=== PATIENT | female | born 1975 | race Caucasian/White ===

== ENCOUNTER 2018-08-29 06:57 | Emergency (ER) | payer MEDICAID ==
[~2018-08-29] VITALS: Ht 152.4 cm; Wt 65.8 kg
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
[2018-08-29] MEDS: LIDOCAINE 1%-EPI 1:100,000 50 ML VIAL IJ ONE (07:38)
--- NOTE | 2018-08-29 07:54 | NUR ---
AT BEDSIDE FOR WOUND SUTURE
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
--- NOTE | 2018-08-29 08:15 | NUR ---
[facility] AT BS.
--- NOTE | 2018-08-29 08:51 | NUR ---
Patient discharged to home in stable condition. Written and verbal after care instructions given. Patient verbalizes understanding of instruction.
[2018-08-29 08:53] VITALS: BP 130/88
== END 2018-08-29 08:54 | disposition home or self-care (01) ==
LOC: ER 07:02
DX: S41.011A Laceration without foreign body of right shoulder, initial encounter (principal); F43.10 Post-traumatic stress disorder, unspecified; F41.9 Anxiety disorder, unspecified; Z98.890 Other specified postprocedural states; Z60.2 Problems related to living alone; X99.8XXA Assault by other sharp object, initial encounter; Y93.89 Activity, other specified; Y92.89 Other specified places as the place of occurrence of the external cause; Y99.8 Other external cause status
CPT/HCPCS: 12002; 99283; A4606; A6402; Z7610

== ENCOUNTER 2018-12-05 01:07 | Emergency (ER) | payer MEDICAID ==
[~2018-12-05] VITALS: Ht 149.9 cm; Wt 68.0 kg
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
[2018-12-05] MEDS ORDERED: IV NS 0.9% 1,000 ML BAG IV ONE (01:30)
[2018-12-05] MEDS ORDERED: HYDROMORPHONE INJ 2 MG/ML DISP.SYRIN IV ONE (01:30)
[2018-12-05] MEDS ORDERED: ONDANSETRON HCL/PF 4 MG/2 ML VIAL IVP ONE (01:30)
[2018-12-05] MEDS ORDERED: HYDROMORPHONE 1 MG/1 ML DISP.SYRIN ONE (01:31)
[2018-12-05] MEDS ORDERED: ONDANSETRON HCL/PF 4 MG/2 ML VIAL ONE (01:37)
--- NOTE | 2018-12-05 01:40 | NUR ---
EKG done, labs drawn. Pt does not have the urge to void at this time. Will collect urine sample once pt has voided.
[2018-12-05 01:47] LABS: BASOPHILS # (AUTO) 0.1 /CMM (0.0-0.2); BASOPHILS % (AUTO) 0.7 % (0.0-2.0); EOSINOPHILS % (AUTO) 0.8 % (0.0-6.0); HEMATOCRIT 33 % (33-45); HEMOGLOBIN 10.4 g/dL (11.5-14.8); LYMPHOCYTES % (AUTO) 21.2 % (20.0-44.0); MEAN CORPUSCULAR HGB CONC 32 g/dl (31.0-36.0); MEAN CORPUSCULAR VOLUME 72 fL (82-100); MONOCYTES # (AUTO) 0.4 /CMM (0.1-1.30); NEUTROPHILS # (AUTO) 6.8 /CMM (1.8-8.9); NEUTROPHILS % (AUTO) 73.3 % (43.0-81.0); PLATELET COUNT (AUTO) 407 /CMM (150-450); RED BLOOD CELL COUNT(AUTO) 4.55 MIL/uL (4.0-5.2); WHITE BLOOD COUNT (AUTO) 9.3 K/uL (4.3-11.0)
[2018-12-05 01:55] LABS: CALCIUM, SERUM 8.8 mg/dL (8.5-10.1); CARBON DIOXIDE 26 mmol/L (21-32); CHLORIDE 104 mmol/L (98-107); CREATININE 0.8 mg/dL (0.6-1.3); GLUCOSE 88 mg/dL (74-106); POTASSIUM 3.3 mmol/L (3.5-5.1); SODIUM SERUM 140 mmol/L (136-145); UREA NITROGEN, BLOOD 23 mg/dL (7-18)
--- NOTE | 2018-12-05 01:55 | NUR ---
Pt transported to Radiology via rney for CT abd.
[2018-12-05 02:01] LABS: ALANINE AMINOTRANSFERASE 24 U/L (12-78); ALBUMIN 3.4 g/dL (3.4-5.0); ALKALINE PHOSPHATASE 89 U/L (46-116); ASPARTATE AMINOTRANSFERASE 26 U/L (15-37); BILIRUBIN,DIRECT 0.1 mg/dL (0.0-0.2); BILIRUBIN,TOTAL 0.1 mg/dL (0.2-1.0); LIPASE 144 U/L (73-393); TOTAL PROTEIN, SERUM 7.5 g/dL (6.4-8.2)
--- NOTE | 2018-12-05 02:05 | NUR ---
Pt came back from Radiology.
--- NOTE | 2018-12-05 02:40 | NUR ---
Pt states her abdominal pain has subsided; states "this weird stomach pain and bloating started since I took Adderall"
[2018-12-05 03:02] VITALS: BP 120/81
--- NOTE | 2018-12-05 03:05 | NUR ---
Patient discharged to home in stable condition. Written and verbal after care instructions given. Patient verbalizes understanding of instruction.IV removed. Catheter intact and site benign. Pressure and 4x4 applied to site. No bleeding noted. Pt ambulatory with a steady gait .
== END 2018-12-05 03:08 | disposition home or self-care (01) ==
LOC: ER 01:09
DX: R10.13 Epigastric pain (principal); R10.12 Left upper quadrant pain; G47.419 Narcolepsy without cataplexy; I10 Essential (primary) hypertension; I20.9 Angina pectoris, unspecified; F43.10 Post-traumatic stress disorder, unspecified; F41.0 Panic disorder [episodic paroxysmal anxiety]; Z98.890 Other specified postprocedural states
CPT/HCPCS: 36415; 74176; 80048; 80076; 83690; 84484; 85025; 85730; 93005; 96374; 96375; 99284; A4606; J1170; J2405; J7030; Z7610

== ENCOUNTER 2019-10-01 17:10 | Emergency (ER) | payer MEDICAID ==
[~2019-10-01] VITALS: Ht 152.4 cm; Wt 68.0 kg
--- NOTE | 2019-10-01 17:59 | NUR ---
PT CAME INTO THE ED C/O L AND R EAR PAIN W/ BLOODY DISCHARGE X 1 WEEK. PT STATES SHE HEARS VOICES SAYING THAT "VOICES ARE TOO LOUD". PT AAOX4,VSS, BREATHING EVEN AND UNLABORED ON ROOM AIR. PT CONNECTED TO THE MONITOR.
--- NOTE | 2019-10-01 17:59 | NUR ---
blood drawn and sent to lab
[2019-10-01 18:02] LABS: BASOPHILS # (AUTO) 0.1 /CMM (0.0-0.2); BASOPHILS % (AUTO) 0.9 % (0.0-2.0); EOSINOPHILS % (AUTO) 0.5 % (0.0-6.0); HEMATOCRIT 40 % (33-45); HEMOGLOBIN 12.7 g/dL (11.5-14.8); LYMPHOCYTES # (AUTO) 1.8 /CMM (0.8-4.8); LYMPHOCYTES % (AUTO) 22.6 % (20.0-44.0); MEAN CORPUSCULAR HGB CONC 32 g/dl (31.0-36.0); MEAN CORPUSCULAR VOLUME 82 fL (82-100); MONOCYTES # (AUTO) 0.4 /CMM (0.1-1.30); MONOCYTES % (AUTO) 4.7 % (2.0-12.0); NEUTROPHILS # (AUTO) 5.7 /CMM (1.8-8.9); NEUTROPHILS % (AUTO) 71.3 % (43.0-81.0); PLATELET COUNT (AUTO) 396 /CMM (150-450); RED BLOOD CELL COUNT(AUTO) 4.91 MIL/uL (4.0-5.2)
[2019-10-01 18:32] LABS: ALANINE AMINOTRANSFERASE 18 U/L (12-78); ALBUMIN 3.6 g/dL (3.4-5.0); ALCOHOL, BLOOD < 3 mg/dL (0-0); ALKALINE PHOSPHATASE 93 U/L (46-116); ASPARTATE AMINOTRANSFERASE 32 U/L (15-37); BILIRUBIN,DIRECT 0.1 mg/dL (0.0-0.2); BILIRUBIN,TOTAL 0.2 mg/dL (0.2-1.0); CALCIUM, SERUM 8.8 mg/dL (8.5-10.1); CARBON DIOXIDE 23 mmol/L (21-32); CHLORIDE 105 mmol/L (98-107); CREATININE 0.9 mg/dL (0.6-1.3); GLUCOSE 94 mg/dL (74-106); POTASSIUM 3.7 mmol/L (3.5-5.1); SODIUM SERUM 138 mmol/L (136-145); TOTAL PROTEIN, SERUM 8.1 g/dL (6.4-8.2); UREA NITROGEN, BLOOD 25 mg/dL (7-18)
[2019-10-01 18:36] LABS: ACETAMINOPHEN < 5 ug/ml (10-30); SALICYLATE 1.9 mg/dL (2.8-20.0)
--- NOTE | 2019-10-01 19:40 | NUR ---
Assumed care of pt. Pt sitting up in bed w/ resp even & unlabored, denies any pain at this time w/ no acute distress noted. Bed low to ground w/ siderails up for safety.
[2019-10-01 20:22] VITALS: BP 128/99
--- NOTE | 2019-10-01 20:22 | NUR ---
Patient discharged to home in stable condition. Written and verbal after care instructions given. Patient verbalizes understanding of instruction.
== END 2019-10-01 20:23 | disposition home or self-care (01) ==
LOC: ER 17:10
DX: H66.93 Otitis media, unspecified, bilateral (principal); H60.93 Unspecified otitis externa, bilateral; F15.10 Other stimulant abuse, uncomplicated; F17.210 Nicotine dependence, cigarettes, uncomplicated; I10 Essential (primary) hypertension; F41.9 Anxiety disorder, unspecified; F43.10 Post-traumatic stress disorder, unspecified; Z98.890 Other specified postprocedural states
CPT/HCPCS: 36415; 80048; 80076; 80307; 80329; 85025; 99283; 99406; G0480

== ENCOUNTER → 2021-08-27 | Emergency (ER) | payer MEDICAID, OTHER ==
[~2021-08-27] VITALS: Ht 157.5 cm; Wt 63.5 kg
[~2021-08-27] MED LIST: IBUP-1955 PO; IV NS 0.9% 1,000 ML BAG IV ONE
[2021-08-27 17:06] VITALS: BP 125/90
--- NOTE | 2021-08-27 17:23 | NUR ---
CALLED [id number] UNIT WILL BE DISPATCHED
--- NOTE | 2021-08-27 17:49 | NUR ---
"Im tired and my heart is hurting". C/O CHEST PAIN STARTED 1 HR AGO, NON RADIATING. PT AAOX3, VSS. RR EVEN & UNLABORED. DENIES SOB, DIZZINESS, N/V AT THIS TIME. PLACED ON SOFTWARE CLIENT ARCHITECT, SR. WILL CONT TO MONITOR.
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
--- NOTE | 2021-08-27 17:52 | NUR ---
[facility] AT BS.
[2021-08-27 17:57] LABS: BASOPHILS # (AUTO) 0.1 K/uL (0.0-0.2); EOSINOPHILS % (AUTO) 0.2 % (0.0-6.0); HEMATOCRIT 34 % (33-45); HEMOGLOBIN 10.1 g/dL (11.5-14.8); LYMPHOCYTES # (AUTO) 1.1 K/uL (0.8-4.8); LYMPHOCYTES % (AUTO) 20.6 % (20.0-44.0); MEAN CORPUSCULAR HGB CONC 30 g/dl (31.0-36.0); MEAN CORPUSCULAR VOLUME 73 fL (82-100); MONOCYTES # (AUTO) 0.3 K/uL (0.1-1.30); MONOCYTES % (AUTO) 6.1 % (2.0-12.0); NEUTROPHILS % (AUTO) 72.1 % (43.0-81.0); PLATELET COUNT (AUTO) 346 K/uL (150-450); RED BLOOD CELL COUNT(AUTO) 4.63 MIL/uL (4.0-5.2); WHITE BLOOD COUNT (AUTO) 5.5 K/uL (4.3-11.0)
[2021-08-27 18:11] LABS: CALCIUM, SERUM 7.7 mg/dL (8.5-10.1); CARBON DIOXIDE 26 mmol/L (21-32); CHLORIDE 108 mmol/L (98-107); GLUCOSE 93 mg/dL (74-106); POTASSIUM 3.5 mmol/L (3.5-5.1); SODIUM SERUM 144 mmol/L (136-145); UREA NITROGEN, BLOOD 28 mg/dL (7-18)
[2021-08-27 18:16] LABS: ALANINE AMINOTRANSFERASE 24 U/L (12-78); ALBUMIN 3.6 g/dL (3.4-5.0); ALKALINE PHOSPHATASE 81 U/L (46-116); ASPARTATE AMINOTRANSFERASE 27 U/L (15-37); BILIRUBIN,DIRECT 0.1 mg/dL (0.0-0.2); BILIRUBIN,TOTAL 0.3 mg/dL (0.2-1.0); TOTAL PROTEIN, SERUM 7.9 g/dL (6.4-8.2)
[2021-08-27 18:33] LABS: LIPASE 324 U/L (73-393)
== END | disposition home or self-care (01) ==
LOC: EDBD 16:54 → ER 16:54
DX: S51.812A Laceration without foreign body of left forearm, initial encounter (principal); R07.89 Other chest pain; I10 Essential (primary) hypertension; F41.9 Anxiety disorder, unspecified; F43.10 Post-traumatic stress disorder, unspecified; Z98.890 Other specified postprocedural states; Y08.89XA Assault by other specified means, initial encounter; Y93.89 Activity, other specified; Y92.89 Other specified places as the place of occurrence of the external cause; Y99.8 Other external cause status
CPT/HCPCS: 36415; 71045; 80048; 80076; 83690; 84484 ×2; 84702; 85025; 93005; 96360; 99285; J7030

== ENCOUNTER 2024-08-07 19:24 | Inpatient (IN) | payer OTHER ==
[~2024-08-07] VITALS: Ht 149.9 cm; Wt 41.7 kg
[~2024-08-07 19:24] MED LIST changes: -IV NS 0.9% 1,000 ML BAG IV ONE
[2024-08-07] MEDS ORDERED: ONDANSETRON HCL/PF 4 MG/2 ML VIAL ONE ×2 (19:44→22:08)
[2024-08-07] MEDS: ONDANSETRON HCL/PF 4 MG/2 ML VIAL IV ONE (20:06)
[2024-08-07 20:14] LABS: BASOPHILS # (AUTO) 0.1 K/uL (0.0-0.2); BASOPHILS % (AUTO) 0.6 % (0.0-2.0); EOSINOPHILS # (AUTO) 0.3 K/uL (0.0-0.7); EOSINOPHILS % (AUTO) 3.9 % (0.0-6.0); HEMATOCRIT 35 % (33-45); HEMOGLOBIN 11.8 g/dL (11.5-14.8); LYMPHOCYTES # (AUTO) 1.6 K/uL (0.8-4.8); LYMPHOCYTES % (AUTO) 19.6 % (20.0-44.0); MEAN CORPUSCULAR HEMOGLOBIN 30 PG (26.0-33.0); MEAN CORPUSCULAR HGB CONC 33 g/dl (31.0-36.0); MEAN CORPUSCULAR VOLUME 89 fL (82-100); MONOCYTES # (AUTO) 0.6 K/uL (0.1-1.30); MONOCYTES % (AUTO) 7.1 % (2.0-12.0); NEUTROPHILS # (AUTO) 5.6 K/uL (1.8-8.9); NEUTROPHILS % (AUTO) 68.8 % (43.0-81.0); PLATELET COUNT (AUTO) 345 K/uL (150-450); RED BLOOD CELL COUNT(AUTO) 3.99 MIL/uL (4.0-5.2); RED CELL DISTRIBUTION WIDTH 13.4 % (11.5-15.0); WHITE BLOOD COUNT (AUTO) 8.1 K/uL (4.3-11.0)
[2024-08-07 20:21] LABS: CALCIUM, SERUM 9.1 mg/dL (8.5-10.1); CARBON DIOXIDE 34 mmol/L (21-32); CHLORIDE 99 mmol/L (98-107); CREATININE 0.6 mg/dL (0.6-1.3); GLUCOSE 73 mg/dL (74-106); POTASSIUM 3.6 mmol/L (3.5-5.1); SODIUM SERUM 138 mmol/L (136-145); UREA NITROGEN, BLOOD 27 mg/dL (7-18)
[2024-08-07 20:34] LABS: ALANINE AMINOTRANSFERASE 33 U/L (12-78); ALBUMIN 2.7 g/dL (3.4-5.0); ALKALINE PHOSPHATASE 163 U/L (46-116); ASPARTATE AMINOTRANSFERASE 72 U/L (15-37); BILIRUBIN,DIRECT 0.1 mg/dL (0.0-0.2); BILIRUBIN,TOTAL 0.2 mg/dL (0.2-1.0); TOTAL PROTEIN, SERUM 7.5 g/dL (6.4-8.2)
[2024-08-07] MEDS ORDERED: PANTOPRAZOLE 40 MG VIAL ONE (21:48)
[2024-08-07] MEDS: PANTOPRAZOLE 40 MG VIAL IV ONE (21:58)
[2024-08-07] MEDS ORDERED: MORPHINE SULFATE INJ 4 MG/ML DISP.SYRIN ONE (22:08)
[2024-08-07] MEDS: ONDANSETRON HCL/PF 4 MG/2 ML VIAL IVP ONE (22:16)
[2024-08-07] MEDS: MORPHINE SULFATE INJ 2 MG/ML DISP.SYRIN IV ONE (22:16)
[2024-08-07] MEDS ORDERED: Z GUARD REMEDY 4 OZ OINT TP PRN (23:00)
[2024-08-07] MEDS ORDERED: MAG HYDROX/AL HYDROX/SIMETH 30 ML UDC PO PRN (23:00)
[2024-08-08] VITALS (22 sets, daily range): BP systolic 32–139; BP diastolic 22–93; TEMP 97.5–98.4; O2SAT 95–100
[2024-08-08] MEDS: IV NS 0.9% 1,000 ML IV SCH (01:49)
[2024-08-08] MEDS: diphenhydrAMINE HCL 50 MG/ML VIAL IV ONE (02:12)
[2024-08-08 06:46] LABS: BASOPHILS % (AUTO) 0.7 % (0.0-2.0); EOSINOPHILS # (AUTO) 0.3 K/uL (0.0-0.7); EOSINOPHILS % (AUTO) 6.5 % (0.0-6.0); HEMATOCRIT 32 % (33-45); HEMOGLOBIN 10.9 g/dL (11.5-14.8); LYMPHOCYTES # (AUTO) 1.5 K/uL (0.8-4.8); LYMPHOCYTES % (AUTO) 29.8 % (20.0-44.0); MEAN CORPUSCULAR HEMOGLOBIN 30 PG (26.0-33.0); MEAN CORPUSCULAR HGB CONC 34 g/dl (31.0-36.0); MEAN CORPUSCULAR VOLUME 89 fL (82-100); MONOCYTES # (AUTO) 0.4 K/uL (0.1-1.30); MONOCYTES % (AUTO) 7.9 % (2.0-12.0); NEUTROPHILS # (AUTO) 2.9 K/uL (1.8-8.9); NEUTROPHILS % (AUTO) 55.1 % (43.0-81.0); PLATELET COUNT (AUTO) 322 K/uL (150-450); RED BLOOD CELL COUNT(AUTO) 3.66 MIL/uL (4.0-5.2); RED CELL DISTRIBUTION WIDTH 12.9 % (11.5-15.0); WHITE BLOOD COUNT (AUTO) 5.2 K/uL (4.3-11.0)
[2024-08-08 06:50] LABS: CALCIUM, SERUM 8.5 mg/dL (8.5-10.1); CREATININE 0.6 mg/dL (0.6-1.3); MAGNESIUM 1.9 mg/dL (1.8-2.4); PHOSPHORUS 4.2 mg/dL (2.5-4.9); POTASSIUM 3.1 mmol/L (3.5-5.1)
[2024-08-08] MEDS ORDERED: PANT40SU2 JT (08:58)
[2024-08-08] MEDS ORDERED: ESCI10TA JT (08:58)
[2024-08-08] MEDS ORDERED: DILT60TA19 JT (08:58)
[2024-08-08] MEDS ORDERED: APIX5TAB JT (08:58)
[2024-08-08] MEDS ORDERED: OXYC5TAB3 JT (08:58)
[2024-08-08] MEDS ORDERED: NA P133E RC (08:58)
[2024-08-08] MEDS ORDERED: BISA10SU11 RC (08:58)
[2024-08-08] MEDS ORDERED: POLY17PO4 JT (08:58)
[2024-08-08] MEDS ORDERED: MAGN400O6 JT (08:58)
[2024-08-08] MEDS ORDERED: METO25TA6 JT (08:58)
[2024-08-08] MEDS ORDERED: MULT-213 JT (08:58)
[2024-08-08] MEDS ORDERED: LACT-96 JT (08:58)
[2024-08-08] MEDS ORDERED: METO5TAB2 JT (08:58)
[2024-08-08] MEDS ORDERED: GABA250S2 JT (08:58)
[2024-08-08] MEDS ORDERED: SUCR1ORA15 JT (08:58)
[2024-08-08] MEDS ORDERED: BACL5TAB JT (08:58)
[2024-08-08] MEDS: PANTOPRAZOLE 40 MG VIAL IV SCH (09:16)
[2024-08-08] MEDS ORDERED: POTASSIUM CHLORIDE 20 MEQ TAB.PRT.SR PO SCH (10:00)
[2024-08-08] MEDS: POTASSIUM CL. PREMIX PERIPHER. 50 ML IV SCH (10:33)
[2024-08-08 12:16] LABS: THYROID STIMULATING HORMONE 0.84 uIU/mL (0.358-3.74)
[2024-08-08] MEDS ORDERED: IOHEXOL-350 100 ML VIAL IV ONE (14:57)
[2024-08-08] MEDS ORDERED: IV NS 0.9% 500 ML IV ONE (14:57)
[2024-08-08] MEDS: METOPROLOL TARTRATE INJ 5 MG/5 ML AMPUL IVP PRN (15:20)
[2024-08-08] MEDS ORDERED: METOPROLOL TARTRATE INJ 5 MG/5 ML AMPUL ONE ×2 (15:25→15:26)
[2024-08-08] MEDS ORDERED: NITROGLYCERIN 0.4 MG/TAB BOTTLE ONE (15:26)
[2024-08-08] MEDS: NITROGLYCERIN 0.4 MG/TAB BOTTLE SL ONE (15:35)
[2024-08-08] MEDS ORDERED: HEPARIN INFUSION/D5W 500 ML IV PRN (16:30)
[2024-08-08] MEDS: HEPARIN SODIUM, PORCINE 5000 UNITS/1 ML VIAL IV ONE (20:22)
[2024-08-08] MEDS: HEPARIN INFUSION/D5W 500 ML IV PRN (20:29)
[2024-08-08] MEDS: IV NS 0.9% 1,000 ML IV PRN (20:37)
[2024-08-08] MEDS: ONDANSETRON HCL/PF 4 MG/2 ML VIAL IVP PRN (20:44)
[2024-08-08] MEDS ORDERED: MORPHINE SULFATE 8 MG/ML VIAL IV PRN (22:30)
[2024-08-09] VITALS (44 sets, daily range): BP systolic 85–167; BP diastolic 55–112; TEMP 97.8–98.6; O2SAT 96–100
[2024-08-09] MEDS: MORPHINE SULFATE INJ 2 MG/ML DISP.SYRIN IV PRN ×3 (00:35→20:03)
[2024-08-09 08:09] LABS: CREATININE 0.2 mg/dL (0.6-1.3)
[2024-08-09 08:22] LABS: POTASSIUM 2.3 mmol/L (3.5-5.1)
[2024-08-09 08:26] LABS: BASOPHILS % (AUTO) 0.6 % (0.0-2.0); CALCIUM, SERUM 5.6 mg/dL (8.5-10.1); EOSINOPHILS # (AUTO) 0.1 K/uL (0.0-0.7); EOSINOPHILS % (AUTO) 1.6 % (0.0-6.0); HEMATOCRIT 22 % (33-45); LYMPHOCYTES # (AUTO) 0.8 K/uL (0.8-4.8); LYMPHOCYTES % (AUTO) 21.6 % (20.0-44.0); MEAN CORPUSCULAR HEMOGLOBIN 30 PG (26.0-33.0); MEAN CORPUSCULAR HGB CONC 31 g/dl (31.0-36.0); MEAN CORPUSCULAR VOLUME 95 fL (82-100); MONOCYTES # (AUTO) 0.2 K/uL (0.1-1.30); MONOCYTES % (AUTO) 6.2 % (2.0-12.0); NEUTROPHILS # (AUTO) 2.6 K/uL (1.8-8.9); PLATELET COUNT (AUTO) 188 K/uL (150-450); RED BLOOD CELL COUNT(AUTO) 2.29 MIL/uL (4.0-5.2); RED CELL DISTRIBUTION WIDTH 13.8 % (11.5-15.0); WHITE BLOOD COUNT (AUTO) 3.7 K/uL (4.3-11.0)
[2024-08-09 08:32] LABS: HEMOGLOBIN 6.8 g/dL (11.5-14.8)
[2024-08-09] MEDS: POTASSIUM CL. PREMIX PERIPHER. 50 ML IV SCH (08:49)
[2024-08-09] MEDS: DEXTROSE 50%-WATER 50 ML DISP.SYRIN IVP ONE (08:49)
[2024-08-09] MEDS: ACETAMINOPHEN 325 MG TABLET PO PRN (09:12)
[2024-08-09] MEDS: IV D5/ 0.9% NACL 1,000 ML IV PRN (11:15)
[2024-08-09 11:39] LABS: BASOPHILS % (AUTO) 0.8 % (0.0-2.0); EOSINOPHILS # (AUTO) 0.1 K/uL (0.0-0.7); EOSINOPHILS % (AUTO) 1.2 % (0.0-6.0); HEMATOCRIT 34 % (33-45); LYMPHOCYTES % (AUTO) 17.2 % (20.0-44.0); MEAN CORPUSCULAR HEMOGLOBIN 29 PG (26.0-33.0); MEAN CORPUSCULAR HGB CONC 33 g/dl (31.0-36.0); MEAN CORPUSCULAR VOLUME 89 fL (82-100); MONOCYTES # (AUTO) 0.3 K/uL (0.1-1.30); MONOCYTES % (AUTO) 5.8 % (2.0-12.0); NEUTROPHILS # (AUTO) 4.3 K/uL (1.8-8.9); PLATELET COUNT (AUTO) 350 K/uL (150-450); RED BLOOD CELL COUNT(AUTO) 3.83 MIL/uL (4.0-5.2); WHITE BLOOD COUNT (AUTO) 5.7 K/uL (4.3-11.0)
[2024-08-09] MEDS: HALOPERIDOL LACTATE INJ 5 MG/ML VIAL IV PRN (11:42)
[2024-08-09 11:46] LABS: CALCIUM, SERUM 8.9 mg/dL (8.5-10.1); CREATININE 0.5 mg/dL (0.6-1.3); POTASSIUM 3.4 mmol/L (3.5-5.1)
[2024-08-09 11:52] LABS: ALBUMIN 2.7 g/dL (3.4-5.0); BILIRUBIN,TOTAL 0.4 mg/dL (0.2-1.0); MAGNESIUM 1.4 mg/dL (1.8-2.4); PHOSPHORUS 3.7 mg/dL (2.5-4.9); TOTAL PROTEIN, SERUM 7.7 g/dL (6.4-8.2)
[2024-08-09 12:06] LABS: ALBUMIN 2.6 g/dL (3.4-5.0)
[2024-08-09 12:21] LABS: ABG BASE EXCESS -5.3 mmol/L (-2.0-3.0); ABG OXYGEN SATURATION 96.7 % (94.0-98.0); ABG PCO2 32.3 mmHg (32.0-45.0); ABG PH 7.385 (7.350-7.450); ABG PO2 94.6 mmHg (83.0-108.0); ABG TOTAL HEMOGLOBIN 11.6 G/dL (12.0-16.0); COHb 0.3 % (0.5-1.5); MetHb 0.1 % (0.0-1.5); O2Hb 96.3 % (94.0-97.0); SITE, ABG RIGHT RADIAL
[2024-08-09] MEDS: Magnesium 1GM/D5W 100ML PREMIX 100 ML IV SCH (12:38)
[2024-08-09 13:58] LABS: EOSINOPHILS % (MANUAL) 4 % (0-4); LYMPHOCYTES % (MANUAL) 16 % (16-48); MONOCYTES % (MANUAL) 3 % (0-11.0); NEUTROPHILS % (MANUAL) 77 (42-76)
[2024-08-09 13:59] LABS: ANISOCYTOSIS 1+; PLATELET ESTIMATE ADEQUATE
[2024-08-09] MEDS: APIXABAN 5 MG TABLET PO SCH (16:33)
[2024-08-10] VITALS (19 sets, daily range): BP systolic 97–149; BP diastolic 69–94; TEMP 97.9–98.2; O2SAT 96–100
[2024-08-10 04:52] LABS: BASOPHILS % (AUTO) 0.7 % (0.0-2.0); EOSINOPHILS # (AUTO) 0.5 K/uL (0.0-0.7); EOSINOPHILS % (AUTO) 10.9 % (0.0-6.0); HEMATOCRIT 32 % (33-45); HEMOGLOBIN 10.7 g/dL (11.5-14.8); LYMPHOCYTES # (AUTO) 1.3 K/uL (0.8-4.8); LYMPHOCYTES % (AUTO) 26.5 % (20.0-44.0); MEAN CORPUSCULAR HEMOGLOBIN 29 PG (26.0-33.0); MEAN CORPUSCULAR HGB CONC 33 g/dl (31.0-36.0); MEAN CORPUSCULAR VOLUME 87 fL (82-100); MONOCYTES # (AUTO) 0.4 K/uL (0.1-1.30); MONOCYTES % (AUTO) 7.4 % (2.0-12.0); NEUTROPHILS # (AUTO) 2.6 K/uL (1.8-8.9); NEUTROPHILS % (AUTO) 54.5 % (43.0-81.0); PLATELET COUNT (AUTO) 320 K/uL (150-450); RED BLOOD CELL COUNT(AUTO) 3.71 MIL/uL (4.0-5.2); WHITE BLOOD COUNT (AUTO) 4.7 K/uL (4.3-11.0)
[2024-08-10 05:08] LABS: CALCIUM, SERUM 8.6 mg/dL (8.5-10.1); CREATININE 0.4 mg/dL (0.6-1.3); MAGNESIUM 1.7 mg/dL (1.8-2.4); PHOSPHORUS 3.1 mg/dL (2.5-4.9); POTASSIUM 3.1 mmol/L (3.5-5.1)
[2024-08-10] MEDS: POTASSIUM CHLORIDE 20 MEQ TAB.PRT.SR PO SCH (08:19)
[2024-08-10] MEDS: Magnesium 1GM/D5W 100ML PREMIX 100 ML IV SCH (08:19)
[2024-08-10] MEDS: diphenhydrAMINE HCL 25 MG CAPSULE PO PRN (20:16)
[2024-08-11] VITALS: BP 129/97; TEMP 98.1; O2SAT 99
[2024-08-11] MEDS: MAGNESIUM HYDROXIDE 30 ML UDC PO PRN (01:31)
[2024-08-11 04:00] VITALS: BP 161/98; TEMP 98.2; O2SAT 100
[2024-08-11 08:00] VITALS: BP 149/97; TEMP 98.1; O2SAT 98
[2024-08-11 10:11] LABS: *SPE A/G RATIO 0.7 (0.7-1.7); *SPE ALBUMIN 2.8 g/dL (2.9-4.4); *SPE ALPHA-1-GLOBULIN 0.3 g/dL (0.0-0.4); *SPE ALPHA-2-GLOBULIN 0.9 g/dL (0.4-1.0); *SPE BETA GLOBULIN 0.9 g/dL (0.7-1.3); *SPE GLOBULIN, TOTAL 3.8 g/dL (2.2-3.9); *SPE M-SPIKE Not Observed g/dL (Not Observed); *SPE PROTEIN TOTAL 6.6 g/dL (6.0-8.5); *SPEGAMMA GLOBULIN 1.7 g/dL (0.4-1.8)
[2024-08-11 12:00] VITALS: BP 137/104; TEMP 98.2; O2SAT 99
[2024-08-11 12:21] VITALS: BP 115/84
[2024-08-11 12:39] LABS: CALCIUM, SERUM 8.9 mg/dL (8.5-10.1); CREATININE 0.5 mg/dL (0.6-1.3); MAGNESIUM 1.7 mg/dL (1.8-2.4); PHOSPHORUS 3.2 mg/dL (2.5-4.9)
[2024-08-11 12:59] LABS: BASOPHILS % (AUTO) 0.7 % (0.0-2.0); EOSINOPHILS # (AUTO) 0.3 K/uL (0.0-0.7); EOSINOPHILS % (AUTO) 4.7 % (0.0-6.0); HEMATOCRIT 39 % (33-45); HEMOGLOBIN 13.2 g/dL (11.5-14.8); LYMPHOCYTES # (AUTO) 1.2 K/uL (0.8-4.8); LYMPHOCYTES % (AUTO) 22.7 % (20.0-44.0); MEAN CORPUSCULAR HEMOGLOBIN 30 PG (26.0-33.0); MEAN CORPUSCULAR HGB CONC 34 g/dl (31.0-36.0); MEAN CORPUSCULAR VOLUME 88 fL (82-100); MONOCYTES # (AUTO) 0.3 K/uL (0.1-1.30); MONOCYTES % (AUTO) 6.1 % (2.0-12.0); NEUTROPHILS # (AUTO) 3.5 K/uL (1.8-8.9); NEUTROPHILS % (AUTO) 65.8 % (43.0-81.0); PLATELET COUNT (AUTO) 390 K/uL (150-450); RED BLOOD CELL COUNT(AUTO) 4.41 MIL/uL (4.0-5.2); RED CELL DISTRIBUTION WIDTH 12.6 % (11.5-15.0); WHITE BLOOD COUNT (AUTO) 5.4 K/uL (4.3-11.0)
[2024-08-11] MEDS ORDERED: APIX5TAB PO (14:47)
[2024-08-11 18:20] LABS: PREGNANCY TEST URINE QUAL NEGATIVE (NEGATIVE)
[2024-08-21] MEDS ORDERED: MUPI22OI7 NS (10:06)
== END 2024-08-11 15:57 | DRG 134 ==
LOC: ER 19:34 → TELE 22:30 → ICU 08-08 16:16 → UNDODISIN 08-08 16:36 → TELE1 08-10 16:15
PROVIDERS: ATTEND Nurse Practitioner Acute Care
DX: I26.99 Other pulmonary embolism without acute cor pulmonale (principal); E43 Unspecified severe protein-calorie malnutrition; E86.0 Dehydration; E88.09 Other disorders of plasma-protein metabolism, not elsewhere classified; I82.411 Acute embolism and thrombosis of right femoral vein; S27.818 Other injury of esophagus (thoracic part); I25.2 Old myocardial infarction; Z93.1 Gastrostomy status; E87.6 Hypokalemia; F32.A Depression, unspecified; F41.9 Anxiety disorder, unspecified; I10 Essential (primary) hypertension; R13.10 Dysphagia, unspecified; Z79.1 Long term (current) use of non-steroidal anti-inflammatories (NSAID); I82.431 Acute embolism and thrombosis of right popliteal vein; Z68.1 Body mass index [BMI] 19.9 or less, adult; R74.8 Abnormal levels of other serum enzymes; E83.42 Hypomagnesemia
CPT/HCPCS: 36415; 36600; 71045-TC; 75574; 80048-TC; 80053-TC; 80076-TC; 82040-TC; 82150-TC; 82728-TC; 82803-TC; 82962-TC; 83540-TC; 83690-TC; 83735-TC; 84100-TC; 84155; 84165; 84439-TC; 84443-TC; 84484-TC; 84703-TC; 85025-TC; 85730-TC; 86850-TC; 93307-TC; 93970-TC; A4223; A6403; G0378; J1200; J1630; J1644; J2270; J2405; J2470; J3475; J3480; J3490; J7030; J7040; J7042; Q0163; Q9967

== ENCOUNTER 2024-08-18 19:07 | Inpatient (IN) | payer OTHER ==
[~2024-08-18] VITALS: Ht 152.4 cm; Wt 59.0 kg
[~2024-08-18 19:07] MED LIST changes: +APIX5TAB PO; +BACL5TAB JT; +BISA10SU11 RC; +DILT60TA19 JT; +ESCI10TA JT; +GABA250S2 JT; -IBUP-1955 PO; +LACT-96 JT; +MAGN400O6 JT; +METO25TA6 JT; +METO5TAB2 JT; +MULT-213 JT; +NA P133E RC; +OXYC5TAB3 JT; +PANT40SU2 JT; +POLY17PO4 JT; +SUCR1ORA15 JT
[2024-08-18 20:17] LABS: BASOPHILS % (AUTO) 0.4 % (0.0-2.0); EOSINOPHILS # (AUTO) 0.2 K/uL (0.0-0.7); HEMATOCRIT 34 % (33-45); HEMOGLOBIN 11.5 g/dL (11.5-14.8); LYMPHOCYTES # (AUTO) 1.5 K/uL (0.8-4.8); LYMPHOCYTES % (AUTO) 16.1 % (20.0-44.0); MEAN CORPUSCULAR HEMOGLOBIN 29 PG (26.0-33.0); MEAN CORPUSCULAR HGB CONC 34 g/dl (31.0-36.0); MEAN CORPUSCULAR VOLUME 87 fL (82-100); MONOCYTES # (AUTO) 1.3 K/uL (0.1-1.30); MONOCYTES % (AUTO) 13.9 % (2.0-12.0); NEUTROPHILS # (AUTO) 6.1 K/uL (1.8-8.9); NEUTROPHILS % (AUTO) 67.6 % (43.0-81.0); PLATELET COUNT (AUTO) 400 K/uL (150-450); RED BLOOD CELL COUNT(AUTO) 3.94 MIL/uL (4.0-5.2); RED CELL DISTRIBUTION WIDTH 12.7 % (11.5-15.0); WHITE BLOOD COUNT (AUTO) 9.1 K/uL (4.3-11.0)
[2024-08-18 20:26] LABS: CREATININE 0.4 mg/dL (0.6-1.3); POTASSIUM 3.7 mmol/L (3.5-5.1)
[2024-08-18] MEDS ORDERED: PANTOPRAZOLE 40 MG VIAL ONE (20:26)
[2024-08-18] MEDS: ONDANSETRON HCL/PF 4 MG/2 ML VIAL IVP ONE (20:26)
[2024-08-18] MEDS: IV NS 0.9% 1,000 ML BAG IV ONE (20:26)
[2024-08-18] MEDS: PANTOPRAZOLE 40 MG VIAL IV ONE (20:26)
[2024-08-18] MEDS ORDERED: ONDANSETRON HCL/PF 4 MG/2 ML VIAL ONE (20:26)
[2024-08-18 20:31] LABS: INR 1.13 (0.91-1.10); PROTHROMBIN TIME 11.5 SECS (9.2-11.1)
[2024-08-18 20:32] LABS: ALBUMIN 2.1 g/dL (3.4-5.0); BILIRUBIN,DIRECT 0.1 mg/dL (0.0-0.2); BILIRUBIN,TOTAL 0.2 mg/dL (0.2-1.0); TOTAL PROTEIN, SERUM 6.8 g/dL (6.4-8.2)
[2024-08-18 20:42] LABS: CALCIUM, SERUM 8.6 mg/dL (8.5-10.1)
[2024-08-18] MEDS ORDERED: Z GUARD REMEDY 4 OZ OINT TP PRN (22:00)
[2024-08-18 22:10] VITALS: BP 126/91; TEMP 99; O2SAT 98
[2024-08-18] MEDS: IV NS 0.9% 1,000 ML IV PRN (22:33)
[2024-08-19] MEDS: MORPHINE SULFATE INJ 2 MG/ML DISP.SYRIN IV PRN (00:22)
[2024-08-19] MEDS ORDERED: PANTOPRAZOLE 40 MG VIAL ONE (02:04)
[2024-08-19] MEDS: PANTOPRAZOLE 80 MG in IV NS 0.9% 500 ML IV PRN (02:08)
[2024-08-19] MEDS: ONDANSETRON HCL/PF 4 MG/2 ML VIAL IVP PRN (03:02)
[2024-08-19 06:47] LABS: ALBUMIN 1.9 g/dL (3.4-5.0); BILIRUBIN,DIRECT 0.1 mg/dL (0.0-0.2); BILIRUBIN,TOTAL 0.2 mg/dL (0.2-1.0); CALCIUM, SERUM 8.2 mg/dL (8.5-10.1); CREATININE 0.4 mg/dL (0.6-1.3); MAGNESIUM 1.8 mg/dL (1.8-2.4); PHOSPHORUS 3.8 mg/dL (2.5-4.9); POTASSIUM 3.4 mmol/L (3.5-5.1); TOTAL PROTEIN, SERUM 6.3 g/dL (6.4-8.2)
[2024-08-19 06:50] LABS: BASOPHILS % (AUTO) 0.3 % (0.0-2.0); EOSINOPHILS # (AUTO) 0.1 K/uL (0.0-0.7); EOSINOPHILS % (AUTO) 0.8 % (0.0-6.0); HEMATOCRIT 32 % (33-45); HEMOGLOBIN 10.9 g/dL (11.5-14.8); LYMPHOCYTES % (AUTO) 11.4 % (20.0-44.0); MEAN CORPUSCULAR HEMOGLOBIN 29 PG (26.0-33.0); MEAN CORPUSCULAR HGB CONC 34 g/dl (31.0-36.0); MEAN CORPUSCULAR VOLUME 86 fL (82-100); MONOCYTES # (AUTO) 0.9 K/uL (0.1-1.30); MONOCYTES % (AUTO) 10.5 % (2.0-12.0); NEUTROPHILS # (AUTO) 6.7 K/uL (1.8-8.9); PLATELET COUNT (AUTO) 372 K/uL (150-450); RED BLOOD CELL COUNT(AUTO) 3.74 MIL/uL (4.0-5.2); RED CELL DISTRIBUTION WIDTH 12.7 % (11.5-15.0); WHITE BLOOD COUNT (AUTO) 8.7 K/uL (4.3-11.0)
[2024-08-19 07:00] VITALS: BP 125/90; TEMP 97.7; O2SAT 95
[2024-08-19 07:04] LABS: THYROID STIMULATING HORMONE 0.73 uIU/mL (0.358-3.74)
[2024-08-19] MEDS ORDERED: ACET-868 JT (08:33)
[2024-08-19] MEDS ORDERED: APIX5TAB JT (08:33)
[2024-08-19] MEDS ORDERED: ACET-2030 JT (08:33)
[2024-08-19] MEDS ORDERED: POLYETHYLENE GLYCOL 3350 17 GM POWD.PACK GT PRN (11:00)
[2024-08-19] MEDS ORDERED: Medication Not On Formulary EA (Oxycodone Hcl 5 MG) JT PRN (11:00)
[2024-08-19] MEDS: POTASSIUM CL. PREMIX PERIPHER. 50 ML IV SCH (11:31)
[2024-08-19] MEDS: DILTIAZEM HCL 30 MG TABLET JT SCH (12:00)
[2024-08-19] MEDS ORDERED: ANESTHESIA TRAY IN PYXIS 1 EA TRAY MC ONE (12:26)
[2024-08-19] MEDS ORDERED: MIDAZOLAM HCL 2 MG/2ML VIAL ONE (12:57)
[2024-08-19] MEDS: SUCRALFATE 1 G/10 ML UDC JT SCH (12:58)
[2024-08-19] MEDS: BACLOFEN (10 MG) 10 MG TABLET JT SCH (12:59)
[2024-08-19] MEDS ORDERED: GABAPENTIN JT SCH (13:00)
[2024-08-19] MEDS: JEVITY 1.5 CAL LIQUID 1,000 ML BOTTLE JT SCH (15:39)
[2024-08-19 16:00] VITALS: BP 126/94; TEMP 97.9; O2SAT 99
[2024-08-19] MEDS: METOPROLOL TARTRATE 25 MG TABLET JT SCH (17:06)
[2024-08-19 20:00] VITALS: BP 115/80; TEMP 98.1; O2SAT 96
[2024-08-19] MEDS: diphenhydrAMINE HCL 50 MG CAPSULE PO ONE (23:10)
[2024-08-20 07:00] VITALS: BP 106/79; TEMP 97.7; O2SAT 96
[2024-08-20 07:28] LABS: BASOPHILS % (AUTO) 0.7 % (0.0-2.0); EOSINOPHILS # (AUTO) 0.2 K/uL (0.0-0.7); EOSINOPHILS % (AUTO) 2.4 % (0.0-6.0); HEMATOCRIT 31 % (33-45); HEMOGLOBIN 10.4 g/dL (11.5-14.8); LYMPHOCYTES # (AUTO) 1.4 K/uL (0.8-4.8); LYMPHOCYTES % (AUTO) 22.2 % (20.0-44.0); MEAN CORPUSCULAR HEMOGLOBIN 29 PG (26.0-33.0); MEAN CORPUSCULAR HGB CONC 34 g/dl (31.0-36.0); MEAN CORPUSCULAR VOLUME 85 fL (82-100); MONOCYTES # (AUTO) 0.7 K/uL (0.1-1.30); MONOCYTES % (AUTO) 11.2 % (2.0-12.0); NEUTROPHILS # (AUTO) 4.1 K/uL (1.8-8.9); NEUTROPHILS % (AUTO) 63.5 % (43.0-81.0); PLATELET COUNT (AUTO) 243 K/uL (150-450); RED BLOOD CELL COUNT(AUTO) 3.61 MIL/uL (4.0-5.2); RED CELL DISTRIBUTION WIDTH 12.8 % (11.5-15.0); WHITE BLOOD COUNT (AUTO) 6.4 K/uL (4.3-11.0)
[2024-08-20 08:11] LABS: ALBUMIN 1.8 g/dL (3.4-5.0); BILIRUBIN,TOTAL 0.3 mg/dL (0.2-1.0); CALCIUM, SERUM 7.9 mg/dL (8.5-10.1); CREATININE 0.3 mg/dL (0.6-1.3); MAGNESIUM 1.9 mg/dL (1.8-2.4); PHOSPHORUS 3.9 mg/dL (2.5-4.9); THYROID STIMULATING HORMONE 1.38 uIU/mL (0.358-3.74); TOTAL PROTEIN, SERUM 6.5 g/dL (6.4-8.2); URIC ACID 2.4 mg/dL (2.6-7.2)
[2024-08-20] MEDS: MULTIVIT W/MINERALS 1 TAB TABLET JT SCH (08:23)
[2024-08-20] MEDS: ESCITALOPRAM OXALATE (10 MG) 10 MG TABLET GT SCH (08:24)
[2024-08-20 16:00] VITALS: BP 130/89; TEMP 98.6; O2SAT 99
[2024-08-20] MEDS: SIMETHICONE SUSP 40 MG/0.6 ML BOTTLE GT PRN (16:40)
[2024-08-20 20:00] VITALS: BP 135/83; TEMP 98; TEMP 98.4; O2SAT 98
[2024-08-20] MEDS: MUPIROCIN OINT 2% 22 GM TUBE NS SCH (21:52)
[2024-08-20] MEDS: diphenhydrAMINE HCL 50 MG/ML VIAL IV ONE (22:53)
[2024-08-21 00:09] LABS: PREGNANCY TEST URINE QUAL NEGATIVE (NEGATIVE)
[2024-08-21 00:13] LABS: URINE SODIUM, RANDOM 193 mmol/l (40-220)
[2024-08-21 08:00] VITALS: BP 100/64; TEMP 98.6; O2SAT 96
[2024-08-21] MEDS: PANTOPRAZOLE 40 MG VIAL IV SCH (08:44)
[2024-08-21] MEDS ORDERED: MUPI22OI7 NS (10:06)
[2024-08-21 11:53] LABS: BASOPHILS # (AUTO) 0.1 K/uL (0.0-0.2); BASOPHILS % (AUTO) 0.6 % (0.0-2.0); EOSINOPHILS # (AUTO) 0.1 K/uL (0.0-0.7); EOSINOPHILS % (AUTO) 1.1 % (0.0-6.0); HEMATOCRIT 33 % (33-45); HEMOGLOBIN 11.2 g/dL (11.5-14.8); LYMPHOCYTES # (AUTO) 1.3 K/uL (0.8-4.8); LYMPHOCYTES % (AUTO) 13.4 % (20.0-44.0); MEAN CORPUSCULAR HEMOGLOBIN 29 PG (26.0-33.0); MEAN CORPUSCULAR HGB CONC 34 g/dl (31.0-36.0); MEAN CORPUSCULAR VOLUME 85 fL (82-100); MONOCYTES # (AUTO) 0.8 K/uL (0.1-1.30); NEUTROPHILS # (AUTO) 7.6 K/uL (1.8-8.9); NEUTROPHILS % (AUTO) 76.9 % (43.0-81.0); PLATELET COUNT (AUTO) 466 K/uL (150-450); RED BLOOD CELL COUNT(AUTO) 3.91 MIL/uL (4.0-5.2); RED CELL DISTRIBUTION WIDTH 12.6 % (11.5-15.0); WHITE BLOOD COUNT (AUTO) 9.9 K/uL (4.3-11.0)
[2024-08-21 12:07] LABS: CALCIUM, SERUM 8.6 mg/dL (8.5-10.1); CREATININE 0.4 mg/dL (0.6-1.3); POTASSIUM 3.6 mmol/L (3.5-5.1)
[2024-08-21 12:55] VITALS: BP 125/68
== END 2024-08-21 16:20 | DRG 243 ==
LOC: ER 19:09 → MED 21:37
PROVIDERS: ADMIT Nurse Practitioner Family; ATTEND Nurse Practitioner Acute Care
PROC: 0DJ08ZZ Inspection of Upper Intestinal Tract, Via Natural or Artificial Opening Endoscopic (ICD-10-PCS; principal; 2024-08-19)
DX: K22.2 Esophageal obstruction (principal); E43 Unspecified severe protein-calorie malnutrition; E87.1 Hypo-osmolality and hyponatremia; E88.09 Other disorders of plasma-protein metabolism, not elsewhere classified; I10 Essential (primary) hypertension; D50.0 Iron deficiency anemia secondary to blood loss (chronic); E66.3 Overweight; E86.9 Volume depletion, unspecified; E87.6 Hypokalemia; Z86.718 Personal history of other venous thrombosis and embolism; Z93.1 Gastrostomy status; Z79.01 Long term (current) use of anticoagulants; Z87.19 Personal history of other diseases of the digestive system; F32.A Depression, unspecified; R13.10 Dysphagia, unspecified; Z68.25 Body mass index [BMI] 25.0-25.9, adult; Z86.711 Personal history of pulmonary embolism; T54.91XS Toxic effect of unspecified corrosive substance, accidental (unintentional), sequela
CPT/HCPCS: 36415; 71045-TC; 80048-TC; 80076-TC; 83540-TC; 83735-TC; 83935-TC; 84100-TC; 84300-TC; 84443-TC; 84550-TC; 84703-TC; 85025-TC; 85027-TC; 85730-TC; 86850-TC; 87081-TC; 92526; 92611-TC; A4223; G0378; J1200; J2250; J2270; J2405; J2470; J2704; J3480; J3490; J7030; J7040; J7050; Q0163

== ENCOUNTER 2024-08-24 14:24 | Inpatient (IN) | payer OTHER ==
[~2024-08-24] VITALS: Ht 149.9 cm; Wt 32.8 kg
[~2024-08-24 14:24] MED LIST changes: +ACET-2030 JT; +ACET-868 JT; +APIX5TAB JT; -APIX5TAB PO; +MUPI22OI7 NS
[2024-08-24 15:24] LABS: BASOPHILS # (AUTO) 0.1 K/uL (0.0-0.2); BASOPHILS % (AUTO) 0.6 % (0.0-2.0); EOSINOPHILS % (AUTO) 0.3 % (0.0-6.0); HEMATOCRIT 32 % (33-45); HEMOGLOBIN 10.6 g/dL (11.5-14.8); LYMPHOCYTES # (AUTO) 1.7 K/uL (0.8-4.8); LYMPHOCYTES % (AUTO) 16.2 % (20.0-44.0); MEAN CORPUSCULAR HEMOGLOBIN 28 PG (26.0-33.0); MEAN CORPUSCULAR HGB CONC 33 g/dl (31.0-36.0); MEAN CORPUSCULAR VOLUME 85 fL (82-100); MONOCYTES # (AUTO) 0.6 K/uL (0.1-1.30); MONOCYTES % (AUTO) 5.4 % (2.0-12.0); NEUTROPHILS % (AUTO) 77.5 % (43.0-81.0); PLATELET COUNT (AUTO) 553 K/uL (150-450); RED BLOOD CELL COUNT(AUTO) 3.79 MIL/uL (4.0-5.2); WHITE BLOOD COUNT (AUTO) 10.3 K/uL (4.3-11.0)
[2024-08-24] MEDS ORDERED: FAMOTIDINE/PF INJ 20 MG/2 ML VIAL IV ONE (15:32)
[2024-08-24] MEDS: ONDANSETRON HCL/PF 4 MG/2 ML VIAL IVP ONE (15:32)
[2024-08-24] MEDS: FAMOTIDINE/PF INJ 20 MG/2 ML VIAL IV ONE (15:32)
[2024-08-24] MEDS ORDERED: ONDANSETRON HCL/PF 4 MG/2 ML VIAL ONE (15:32)
[2024-08-24 15:53] LABS: ALBUMIN 2.4 g/dL (3.4-5.0); BILIRUBIN,DIRECT 0.1 mg/dL (0.0-0.2); BILIRUBIN,TOTAL 0.3 mg/dL (0.2-1.0); CREATININE 0.5 mg/dL (0.6-1.3); TOTAL PROTEIN, SERUM 7.2 g/dL (6.4-8.2)
[2024-08-24] MEDS ORDERED: MORPHINE SULFATE INJ 4 MG/ML DISP.SYRIN ONE (15:56)
[2024-08-24] MEDS: MORPHINE SULFATE INJ 2 MG/ML DISP.SYRIN IV ONE (15:57)
[2024-08-24] MEDS ORDERED: MUPI22OI7 TP (16:41)
[2024-08-24] MEDS ORDERED: SENN8.6T19 JT (16:41)
[2024-08-24] MEDS: IV NS 0.9% 1,000 ML BAG IV ONE (16:59)
[2024-08-24] MEDS: PIPERACILLIN /TAZOBACTAM 3.375 G in IV D5W 50 ML IV ONE (16:59)
[2024-08-24 17:28] LABS: APPEARANCE,URINE CLEAR (CLEAR); BILIRUBIN,URINE 2+ (NEGATIVE); BLOOD, URINE 1+ Ery/uL (NEGATIVE); COLOR,URINE YELLOW (YELLOW); KETONES,URINE NEGATIVE (NEGATIVE); LEUKOCYTE ESTERASE ,URINE TRACE (NEGATIVE); NITRITE, URINE NEGATIVE (NEGATIVE); PROTEIN,URINE NEGATIVE (NEGATIVE); UGLUCOSE NEGATIVE (NEGATIVE)
[2024-08-24 18:04] LABS: PREGNANCY TEST URINE QUAL NEGATIVE (NEGATIVE)
[2024-08-24 18:10] LABS: ADD URINE CULTURE YES; BACTERIA,URINE 4+ /HPF (None Seen); RBC,URINE 1 /HPF (0-2)
[2024-08-24] MEDS ORDERED: MAGNESIUM HYDROXIDE 30 ML UDC PO PRN (19:30)
[2024-08-24] MEDS ORDERED: Z GUARD REMEDY 4 OZ OINT TP PRN (19:30)
[2024-08-24 20:00] VITALS: BP 122/84; TEMP 98.1; O2SAT 99
[2024-08-24] MEDS: ENOXAPARIN SODIUM 40 MG/0.4 ML DISP.SYRIN SQ SCH (20:23)
[2024-08-24] MEDS: ONDANSETRON HCL/PF 4 MG/2 ML VIAL IVP PRN (20:24)
[2024-08-24] MEDS: IV D5/0.45 NACL 1,000 ML IV PRN (20:31)
[2024-08-24] MEDS: diphenhydrAMINE HCL 50 MG/ML VIAL IV ONE (21:03)
[2024-08-25] MEDS ORDERED: PIPERACILLIN /TAZOBACTAM 3.375 G in IV D5W 50 ML IV SCH
[2024-08-25] MEDS: PIPERACI/TAZO 3.375GM/D5W 50ML PB IV ONE ×2 (00:03→05:56)
[2024-08-25] MEDS: PIPERACILLIN /TAZOBACTAM 3.375 G in IV D5W 50 ML IV SCH (00:11)
[2024-08-25] MEDS: MORPHINE SULFATE INJ 2 MG/ML DISP.SYRIN IV PRN (02:26)
[2024-08-25 04:00] VITALS: BP 115/83; TEMP 98.2; O2SAT 96
[2024-08-25 06:38] LABS: BASOPHILS % (AUTO) 0.7 % (0.0-2.0); EOSINOPHILS # (AUTO) 0.2 K/uL (0.0-0.7); EOSINOPHILS % (AUTO) 2.1 % (0.0-6.0); HEMATOCRIT 28 % (33-45); HEMOGLOBIN 9.7 g/dL (11.5-14.8); LYMPHOCYTES # (AUTO) 1.3 K/uL (0.8-4.8); LYMPHOCYTES % (AUTO) 17.5 % (20.0-44.0); MEAN CORPUSCULAR HEMOGLOBIN 29 PG (26.0-33.0); MEAN CORPUSCULAR HGB CONC 34 g/dl (31.0-36.0); MEAN CORPUSCULAR VOLUME 85 fL (82-100); MONOCYTES # (AUTO) 0.5 K/uL (0.1-1.30); MONOCYTES % (AUTO) 6.4 % (2.0-12.0); NEUTROPHILS # (AUTO) 5.3 K/uL (1.8-8.9); NEUTROPHILS % (AUTO) 73.3 % (43.0-81.0); PLATELET COUNT (AUTO) 489 K/uL (150-450); RED BLOOD CELL COUNT(AUTO) 3.34 MIL/uL (4.0-5.2); RED CELL DISTRIBUTION WIDTH 12.7 % (11.5-15.0); WHITE BLOOD COUNT (AUTO) 7.2 K/uL (4.3-11.0)
[2024-08-25 07:06] LABS: CALCIUM, SERUM 7.7 mg/dL (8.5-10.1); CREATININE 0.6 mg/dL (0.6-1.3); MAGNESIUM 2.1 mg/dL (1.8-2.4); PHOSPHORUS 4.3 mg/dL (2.5-4.9); POTASSIUM 2.9 mmol/L (3.5-5.1)
[2024-08-25] MEDS ORDERED: BISACODYL SUPP (10 MG) 10 MG/SUPP.RECT SUPP.RECT RC PRN (09:30)
[2024-08-25] MEDS: PANTOPRAZOLE 40 MG TABLET.DR PO SCH (10:19)
[2024-08-25] MEDS: POTASSIUM CL. PREMIX PERIPHER. 50 ML IV SCH (10:24)
[2024-08-25 12:00] VITALS: BP 105/79; TEMP 97.9; O2SAT 95
[2024-08-25] MEDS: DILTIAZEM HCL 30 MG TABLET JT SCH (12:19)
[2024-08-25] MEDS: SUCRALFATE 1 G/10 ML UDC JT SCH (12:19)
[2024-08-25] MEDS: ZOSYN IVPB 3.375 G in IV D5W 50ml IV SCH (12:19)
[2024-08-25] MEDS ORDERED: OXYBUTYNIN CHLORIDE 5 MG TABLET JT PRN (13:00)
[2024-08-25] MEDS: GABAPENTIN 100 MG CAPSULE GT SCH (13:02)
[2024-08-25] MEDS: BACLOFEN (10 MG) 10 MG TABLET JT SCH (13:04)
[2024-08-25] MEDS: METOCLOPRAMIDE HCL 10 MG TABLET JT PRN (14:27)
[2024-08-25] MEDS: MAG HYDROX/AL HYDROX/SIMETH 30 ML UDC PO PRN (14:27)
[2024-08-25 16:00] VITALS: BP 120/94; TEMP 98.1; O2SAT 100
[2024-08-25] MEDS ORDERED: PANTOPRAZOLE 40 MG/PACK PACK JT SCH (17:00)
[2024-08-25] MEDS: METOPROLOL TARTRATE 25 MG TABLET JT SCH (17:20)
[2024-08-25] MEDS: MUPIROCIN OINT 2% 22 GM TUBE TP SCH (17:21)
[2024-08-25] MEDS: APIXABAN 5 MG TABLET PO SCH (17:21)
[2024-08-25 20:00] VITALS: BP 96/60; TEMP 98.1; O2SAT 100
[2024-08-25] MEDS: SENNOSIDES 8.6 MG TABLET JT SCH (21:18)
[2024-08-25] MEDS: IV NS 0.9% 1,000 ML IV ONE (22:38)
[2024-08-25] MEDS: ACETAMINOPHEN 325 MG TABLET PO PRN (22:41)
[2024-08-26 04:00] VITALS: BP 132/88; TEMP 98.1; O2SAT 100
[2024-08-26 08:00] VITALS: BP 114/72; TEMP 97.5; O2SAT 99
[2024-08-26] MEDS: ESCITALOPRAM OXALATE (10 MG) 10 MG TABLET PO SCH (08:51)
[2024-08-26] MEDS: MULTIVIT W/MINERALS 1 TAB TABLET JT SCH (08:51)
[2024-08-26] MEDS ORDERED: MAGNESIUM HYDROXIDE 30 ML UDC JT SCH (09:00)
[2024-08-26 16:00] VITALS: BP 128/94; TEMP 97.9; O2SAT 99
[2024-08-26 17:28] LABS: EOSINOPHILS # (AUTO) 0.2 K/uL (0.0-0.7); EOSINOPHILS % (AUTO) 4.5 % (0.0-6.0); HEMATOCRIT 32 % (33-45); HEMOGLOBIN 10.5 g/dL (11.5-14.8); LYMPHOCYTES # (AUTO) 1.4 K/uL (0.8-4.8); LYMPHOCYTES % (AUTO) 30.2 % (20.0-44.0); MEAN CORPUSCULAR HEMOGLOBIN 28 PG (26.0-33.0); MEAN CORPUSCULAR HGB CONC 33 g/dl (31.0-36.0); MEAN CORPUSCULAR VOLUME 85 fL (82-100); MONOCYTES # (AUTO) 0.4 K/uL (0.1-1.30); MONOCYTES % (AUTO) 8.5 % (2.0-12.0); NEUTROPHILS # (AUTO) 2.6 K/uL (1.8-8.9); NEUTROPHILS % (AUTO) 55.8 % (43.0-81.0); PLATELET COUNT (AUTO) 497 K/uL (150-450); RED BLOOD CELL COUNT(AUTO) 3.76 MIL/uL (4.0-5.2); RED CELL DISTRIBUTION WIDTH 13.2 % (11.5-15.0); WHITE BLOOD COUNT (AUTO) 4.7 K/uL (4.3-11.0)
[2024-08-26 18:06] LABS: CALCIUM, SERUM 8.6 mg/dL (8.5-10.1); CREATININE 0.5 mg/dL (0.6-1.3); MAGNESIUM 2.5 mg/dL (1.8-2.4); PHOSPHORUS 4.6 mg/dL (2.5-4.9); POTASSIUM 3.8 mmol/L (3.5-5.1)
[2024-08-26 20:00] VITALS: BP 119/87; TEMP 98.1
[2024-08-26] MEDS: ZOLPIDEM TARTRATE 5 MG TABLET PO PRN (21:06)
[2024-08-27] VITALS: BP 132/94; TEMP 98; O2SAT 98
[2024-08-27 04:56] VITALS: BP 112/97; TEMP 98.1
[2024-08-27 06:35] LABS: BASOPHILS % (AUTO) 0.3 % (0.0-2.0); EOSINOPHILS # (AUTO) 0.1 K/uL (0.0-0.7); EOSINOPHILS % (AUTO) 0.8 % (0.0-6.0); HEMATOCRIT 36 % (33-45); LYMPHOCYTES % (AUTO) 10.8 % (20.0-44.0); MEAN CORPUSCULAR HEMOGLOBIN 29 PG (26.0-33.0); MEAN CORPUSCULAR HGB CONC 33 g/dl (31.0-36.0); MEAN CORPUSCULAR VOLUME 86 fL (82-100); MONOCYTES # (AUTO) 0.3 K/uL (0.1-1.30); MONOCYTES % (AUTO) 3.3 % (2.0-12.0); NEUTROPHILS # (AUTO) 7.7 K/uL (1.8-8.9); NEUTROPHILS % (AUTO) 84.8 % (43.0-81.0); PLATELET COUNT (AUTO) 574 K/uL (150-450); RED CELL DISTRIBUTION WIDTH 12.8 % (11.5-15.0); WHITE BLOOD COUNT (AUTO) 9.1 K/uL (4.3-11.0)
[2024-08-27 06:52] LABS: POTASSIUM 3.2 mmol/L (3.5-5.1)
[2024-08-27 06:53] LABS: CALCIUM, SERUM 8.2 mg/dL (8.5-10.1); CREATININE 0.6 mg/dL (0.6-1.3); MAGNESIUM 2.4 mg/dL (1.8-2.4); PHOSPHORUS 4.4 mg/dL (2.5-4.9)
[2024-08-27 08:00] VITALS: BP 110/61; TEMP 97.8; O2SAT 95
[2024-08-27] MEDS: POTASSIUM CHLORIDE 20 MEQ POWDER PACKET JT SCH (09:45)
[2024-08-27 16:00] VITALS: BP 130/85; TEMP 98.1; O2SAT 100
[2024-08-27] MEDS: JEVITY 1.2 CAL 1,000 ML BOTTLE GT PRN (18:10)
[2024-08-27 20:00] VITALS: BP 112/78; TEMP 98.6; O2SAT 96
[2024-08-28 00:22] VITALS: BP 112/78; TEMP 98.6; O2SAT 96
[2024-08-28 04:00] VITALS: BP 106/67; TEMP 98.6; O2SAT 98
[2024-08-28 06:36] LABS: BASOPHILS % (AUTO) 0.7 % (0.0-2.0); EOSINOPHILS # (AUTO) 0.3 K/uL (0.0-0.7); EOSINOPHILS % (AUTO) 6.2 % (0.0-6.0); HEMATOCRIT 31 % (33-45); HEMOGLOBIN 10.3 g/dL (11.5-14.8); LYMPHOCYTES # (AUTO) 1.8 K/uL (0.8-4.8); LYMPHOCYTES % (AUTO) 39.1 % (20.0-44.0); MEAN CORPUSCULAR HEMOGLOBIN 29 PG (26.0-33.0); MEAN CORPUSCULAR HGB CONC 34 g/dl (31.0-36.0); MEAN CORPUSCULAR VOLUME 84 fL (82-100); MONOCYTES # (AUTO) 0.4 K/uL (0.1-1.30); MONOCYTES % (AUTO) 7.9 % (2.0-12.0); NEUTROPHILS # (AUTO) 2.1 K/uL (1.8-8.9); NEUTROPHILS % (AUTO) 46.1 % (43.0-81.0); PLATELET COUNT (AUTO) 509 K/uL (150-450); RED BLOOD CELL COUNT(AUTO) 3.61 MIL/uL (4.0-5.2); RED CELL DISTRIBUTION WIDTH 12.8 % (11.5-15.0); WHITE BLOOD COUNT (AUTO) 4.5 K/uL (4.3-11.0)
[2024-08-28 07:17] LABS: CALCIUM, SERUM 8.3 mg/dL (8.5-10.1); CREATININE 0.6 mg/dL (0.6-1.3); PHOSPHORUS 3.2 mg/dL (2.5-4.9); POTASSIUM 3.4 mmol/L (3.5-5.1)
[2024-08-28] MEDS: POTASSIUM CHLORIDE 20 MEQ POWDER PACKET NG SCH (10:27)
[2024-08-28] MEDS: CHLORHEXIDINE GLUCONATE 4% 118 ML BOTTLE TP SCH (14:33)
[2024-08-28 20:00] VITALS: BP 109/80; TEMP 98.1; O2SAT 95
[2024-08-28] MEDS: diphenhydrAMINE HCL ELIX 25 MG/10 ML UDC GT PRN (23:22)
[2024-08-29 04:50] VITALS: BP 110/77; TEMP 98.1; O2SAT 97
[2024-08-29 06:41] LABS: BASOPHILS # (AUTO) 0.1 K/uL (0.0-0.2); BASOPHILS % (AUTO) 1.2 % (0.0-2.0); EOSINOPHILS # (AUTO) 0.3 K/uL (0.0-0.7); HEMATOCRIT 31 % (33-45); HEMOGLOBIN 10.4 g/dL (11.5-14.8); LYMPHOCYTES # (AUTO) 1.8 K/uL (0.8-4.8); LYMPHOCYTES % (AUTO) 42.9 % (20.0-44.0); MEAN CORPUSCULAR HEMOGLOBIN 28 PG (26.0-33.0); MEAN CORPUSCULAR HGB CONC 34 g/dl (31.0-36.0); MEAN CORPUSCULAR VOLUME 84 fL (82-100); MONOCYTES # (AUTO) 0.4 K/uL (0.1-1.30); MONOCYTES % (AUTO) 9.3 % (2.0-12.0); NEUTROPHILS # (AUTO) 1.7 K/uL (1.8-8.9); NEUTROPHILS % (AUTO) 40.6 % (43.0-81.0); PLATELET COUNT (AUTO) 543 K/uL (150-450); RED BLOOD CELL COUNT(AUTO) 3.69 MIL/uL (4.0-5.2); RED CELL DISTRIBUTION WIDTH 12.8 % (11.5-15.0); WHITE BLOOD COUNT (AUTO) 4.2 K/uL (4.3-11.0)
[2024-08-29 07:24] LABS: CALCIUM, SERUM 8.5 mg/dL (8.5-10.1); CREATININE 0.6 mg/dL (0.6-1.3); MAGNESIUM 2.2 mg/dL (1.8-2.4); PHOSPHORUS 3.5 mg/dL (2.5-4.9); POTASSIUM 3.4 mmol/L (3.5-5.1)
[2024-08-29] MEDS: POTASSIUM CHLORIDE 20 MEQ POWDER PACKET NG SCH (11:04)
[2024-08-29 12:00] VITALS: BP 98/77
[2024-08-29] MEDS ORDERED: DIATR MEGLU/DIATRIZOATE SODIUM 30 ML BOTTLE (GASTROGRAPHIN) ONE (12:56)
[2024-08-29 13:01] LABS: HEMOGLOBIN 11.6 g/dL (11.5-14.8)
[2024-08-29] MEDS ORDERED: AMOX-427 JT (14:04)
[2024-08-29] MEDS ORDERED: IV NS 0.9% 250 ML IV ONE (14:57)
[2024-08-29] MEDS ORDERED: CT SWABBABLE VALVE TRANS SET 1 EA INFUS.SET MC ONE (14:57)
[2024-08-29] MEDS ORDERED: IOHEXOL-300 100 ML VIAL IV ONE (14:57)
== END 2024-08-29 17:52 | DRG 249 ==
LOC: ER 14:30 → MEDSG1 18:16
PROVIDERS: ADMIT Student in an Organized Health Care Education/Training Program; ATTEND Nurse Practitioner Acute Care
DX: A08.4 Viral intestinal infection, unspecified (principal); K63.1 Perforation of intestine (nontraumatic); E43 Unspecified severe protein-calorie malnutrition; K52.89 Other specified noninfective gastroenteritis and colitis; K29.70 Gastritis, unspecified, without bleeding; K57.90 Diverticulosis of intestine, part unspecified, without perforation or abscess without bleeding; E87.1 Hypo-osmolality and hyponatremia; Z87.19 Personal history of other diseases of the digestive system; Z93.4 Other artificial openings of gastrointestinal tract status; Z90.49 Acquired absence of other specified parts of digestive tract; Z87.59 Personal history of other complications of pregnancy, childbirth and the puerperium; Z79.01 Long term (current) use of anticoagulants; Z79.899 Other long term (current) drug therapy; D17.71 Benign lipomatous neoplasm of kidney; I10 Essential (primary) hypertension; R13.10 Dysphagia, unspecified; E88.09 Other disorders of plasma-protein metabolism, not elsewhere classified; F32.A Depression, unspecified; L73.2 Hidradenitis suppurativa; D64.9 Anemia, unspecified; E87.6 Hypokalemia
CPT/HCPCS: 36415; 71045-TC; 80048-TC; 80076-TC; 81001; 83605-TC; 83690-TC; 83735-TC; 84100-TC; 84484-TC; 84703-TC; 85025-TC; 85027-TC; 87040-TC; 87081-TC; 87086-TC; A4223; A6403; A6407; G0378; J1200; J1650; J2270; J2405; J2543; J3480; J3490; J7030; J7040; J7050; J7060; J8597; Q0163; Q9963; Q9967

== ENCOUNTER 2024-09-03 18:47 | Emergency (ER) | payer OTHER ==
[~2024-09-03] VITALS: Ht 167.6 cm; Wt 41.7 kg
[~2024-09-03 18:47] MED LIST changes: +AMOX-427 JT; -LACT-96 JT; -MUPI22OI7 NS; +MUPI22OI7 TP; +SENN8.6T19 JT
[2024-09-03] MEDS ORDERED: ONDANSETRON HCL/PF 4 MG/2 ML VIAL ONE (19:38)
[2024-09-03] MEDS: ONDANSETRON HCL/PF 4 MG/2 ML VIAL IVP ONE (19:58)
[2024-09-03 20:00] LABS: BASOPHILS % (AUTO) 0.5 % (0.0-2.0); EOSINOPHILS # (AUTO) 0.3 K/uL (0.0-0.7); EOSINOPHILS % (AUTO) 2.6 % (0.0-6.0); HEMATOCRIT 36 % (33-45); HEMOGLOBIN 11.9 g/dL (11.5-14.8); LYMPHOCYTES # (AUTO) 1.9 K/uL (0.8-4.8); LYMPHOCYTES % (AUTO) 17.7 % (20.0-44.0); MEAN CORPUSCULAR HEMOGLOBIN 29 PG (26.0-33.0); MEAN CORPUSCULAR HGB CONC 33 g/dl (31.0-36.0); MEAN CORPUSCULAR VOLUME 87 fL (82-100); MONOCYTES # (AUTO) 0.6 K/uL (0.1-1.30); MONOCYTES % (AUTO) 5.9 % (2.0-12.0); NEUTROPHILS # (AUTO) 7.7 K/uL (1.8-8.9); NEUTROPHILS % (AUTO) 73.3 % (43.0-81.0); PLATELET COUNT (AUTO) 493 K/uL (150-450); RED BLOOD CELL COUNT(AUTO) 4.12 MIL/uL (4.0-5.2); RED CELL DISTRIBUTION WIDTH 13.5 % (11.5-15.0); WHITE BLOOD COUNT (AUTO) 10.5 K/uL (4.3-11.0)
[2024-09-03 20:07] LABS: CALCIUM, SERUM 9.8 mg/dL (8.5-10.1); CREATININE 0.6 mg/dL (0.6-1.3); POTASSIUM 3.1 mmol/L (3.5-5.1)
[2024-09-03 20:13] LABS: ALBUMIN 2.8 g/dL (3.4-5.0); BILIRUBIN,DIRECT 0.1 mg/dL (0.0-0.2); BILIRUBIN,TOTAL 0.4 mg/dL (0.2-1.0); TOTAL PROTEIN, SERUM 7.8 g/dL (6.4-8.2)
[2024-09-03] MEDS ORDERED: MAG HYDROX/AL HYDROX/SIMETH 30 ML UDC ONE (20:22)
[2024-09-03] MEDS ORDERED: MORPHINE SULFATE INJ 2 MG/ML DISP.SYRIN ONE (20:22)
[2024-09-03] MEDS: MAG HYDROX/AL HYDROX/SIMETH 30 ML UDC PO ONE (20:35)
[2024-09-03] MEDS: MORPHINE SULFATE INJ 2 MG/ML DISP.SYRIN IV ONE (20:35)
[2024-09-03] MEDS ORDERED: ONDA4TAB11 PO (21:07)
[2024-09-03] MEDS ORDERED: PANT40TA2 PO (21:07)
[2024-09-04 00:10] VITALS: BP 105/70; TEMP 98; O2SAT 98
[2024-09-05] MEDS ORDERED: ESCI5TAB JT (15:51)
[2024-09-05] MEDS ORDERED: AMOX-427 JT (15:51)
== END 2024-09-04 00:11 ==
LOC: ER 18:52
DX: R10.13 Epigastric pain (principal); R11.2 Nausea with vomiting, unspecified; I10 Essential (primary) hypertension; K21.9 Gastro-esophageal reflux disease without esophagitis; F17.200 Nicotine dependence, unspecified, uncomplicated; Z87.19 Personal history of other diseases of the digestive system; Z79.01 Long term (current) use of anticoagulants; Z79.899 Other long term (current) drug therapy
CPT/HCPCS: 99284; 96374; 96375; 85025; 80048; 83690; 80076; 36415; J2405; J2270

== ENCOUNTER 2024-09-05 15:16 | Inpatient (IN) | payer OTHER ==
[~2024-09-05] VITALS: Ht 149.9 cm; Wt 41.0 kg
[~2024-09-05 15:16] MED LIST changes: +ONDA4TAB11 PO; +PANT40TA2 PO
[2024-09-05] MEDS ORDERED: ESCI5TAB JT (15:51)
[2024-09-05] MEDS ORDERED: AMOX-427 JT (15:51)
[2024-09-05 15:59] LABS: BASOPHILS % (AUTO) 0.4 % (0.0-2.0); EOSINOPHILS # (AUTO) 0.1 K/uL (0.0-0.7); EOSINOPHILS % (AUTO) 1.5 % (0.0-6.0); HEMATOCRIT 36 % (33-45); HEMOGLOBIN 11.8 g/dL (11.5-14.8); LYMPHOCYTES # (AUTO) 1.8 K/uL (0.8-4.8); LYMPHOCYTES % (AUTO) 22.7 % (20.0-44.0); MEAN CORPUSCULAR HEMOGLOBIN 29 PG (26.0-33.0); MEAN CORPUSCULAR HGB CONC 33 g/dl (31.0-36.0); MEAN CORPUSCULAR VOLUME 86 fL (82-100); MONOCYTES # (AUTO) 0.5 K/uL (0.1-1.30); MONOCYTES % (AUTO) 5.8 % (2.0-12.0); NEUTROPHILS # (AUTO) 5.5 K/uL (1.8-8.9); NEUTROPHILS % (AUTO) 69.6 % (43.0-81.0); PLATELET COUNT (AUTO) 426 K/uL (150-450); RED BLOOD CELL COUNT(AUTO) 4.13 MIL/uL (4.0-5.2)
[2024-09-05 16:09] LABS: CALCIUM, SERUM 9.2 mg/dL (8.5-10.1); CREATININE 0.6 mg/dL (0.6-1.3)
[2024-09-05 16:11] LABS: INR 1.08 (0.91-1.10); PARTIAL THROMBOPLASTIN TIME 27.1 SEC (24.3-34.3); PROTHROMBIN TIME 11.1 SECS (9.2-11.1)
[2024-09-05 16:15] LABS: ALBUMIN 2.7 g/dL (3.4-5.0); BILIRUBIN,DIRECT 0.1 mg/dL (0.0-0.2); BILIRUBIN,TOTAL 0.3 mg/dL (0.2-1.0); TOTAL PROTEIN, SERUM 7.8 g/dL (6.4-8.2)
[2024-09-05] MEDS: PANTOPRAZOLE 80 MG in IV NS 0.9% 100 ML IV ONE (16:21)
[2024-09-05] MEDS: PANTOPRAZOLE 80 MG in IV NS 0.9% 500 ML IV ONE (16:29)
[2024-09-05] MEDS ORDERED: Magnesium 1GM/D5W 100ML PREMIX 100 ML IV ONE (16:34)
[2024-09-05] MEDS ORDERED: MORPHINE SULFATE INJ 4 MG/ML DISP.SYRIN ONE (16:34)
[2024-09-05] MEDS ORDERED: POTASSIUM CL. PREMIX PERIPHER. 0 ML ONE (16:34)
[2024-09-05] MEDS: Magnesium 1GM/D5W 100ML PREMIX PIGGYBACK IV ONE (16:35)
[2024-09-05] MEDS: MORPHINE SULFATE INJ 2 MG/ML DISP.SYRIN IV ONE (16:51)
[2024-09-05] MEDS: POTASSIUM CL. PREMIX PERIPHER. 50 ML IV SCH (16:52)
[2024-09-05] MEDS ORDERED: POTASSIUM CL. PREMIX PERIPHER. 50 ML ONE ×2 (17:30→19:32)
[2024-09-05] MEDS ORDERED: IV NS 0.9% 250 ML IV ONE (17:44)
[2024-09-05] MEDS ORDERED: IOHEXOL-300 100 ML VIAL IV ONE (17:44)
[2024-09-05] MEDS ORDERED: Z GUARD REMEDY 4 OZ OINT TP PRN (18:00)
[2024-09-05 20:00] VITALS: BP 95/70; TEMP 98.2; O2SAT 97
[2024-09-05] MEDS: MORPHINE SULFATE INJ 2 MG/ML DISP.SYRIN IV PRN (20:48)
[2024-09-05] MEDS: PANTOPRAZOLE 40 MG VIAL IV SCH (21:30)
[2024-09-05] MEDS: ONDANSETRON HCL/PF 4 MG/2 ML VIAL IVP PRN (22:58)
[2024-09-05] MEDS: IV NS 0.9% 1,000 ML IV PRN (23:17)
[2024-09-05] MEDS: diphenhydrAMINE HCL 50 MG/ML VIAL IV ONE (23:51)
[2024-09-06 06:18] LABS: BASOPHILS % (AUTO) 0.7 % (0.0-2.0); EOSINOPHILS # (AUTO) 0.2 K/uL (0.0-0.7); EOSINOPHILS % (AUTO) 3.3 % (0.0-6.0); HEMATOCRIT 32 % (33-45); HEMOGLOBIN 10.8 g/dL (11.5-14.8); LYMPHOCYTES # (AUTO) 1.3 K/uL (0.8-4.8); MEAN CORPUSCULAR HEMOGLOBIN 29 PG (26.0-33.0); MEAN CORPUSCULAR HGB CONC 34 g/dl (31.0-36.0); MEAN CORPUSCULAR VOLUME 85 fL (82-100); MONOCYTES # (AUTO) 0.4 K/uL (0.1-1.30); MONOCYTES % (AUTO) 6.3 % (2.0-12.0); NEUTROPHILS # (AUTO) 4.8 K/uL (1.8-8.9); NEUTROPHILS % (AUTO) 70.7 % (43.0-81.0); PLATELET COUNT (AUTO) 322 K/uL (150-450); RED BLOOD CELL COUNT(AUTO) 3.79 MIL/uL (4.0-5.2); RED CELL DISTRIBUTION WIDTH 13.2 % (11.5-15.0); WHITE BLOOD COUNT (AUTO) 6.8 K/uL (4.3-11.0)
[2024-09-06 06:41] LABS: CALCIUM, SERUM 9.1 mg/dL (8.5-10.1); CREATININE 0.4 mg/dL (0.6-1.3); MAGNESIUM 2.3 mg/dL (1.8-2.4); PHOSPHORUS 3.7 mg/dL (2.5-4.9); POTASSIUM 3.5 mmol/L (3.5-5.1)
[2024-09-06 08:00] VITALS: BP 115/83; TEMP 98.6; O2SAT 98
[2024-09-06 09:29] LABS: ALBUMIN 2.1 g/dL (3.4-5.0); BILIRUBIN,DIRECT 0.1 mg/dL (0.0-0.2); BILIRUBIN,TOTAL 0.2 mg/dL (0.2-1.0); TOTAL PROTEIN, SERUM 6.7 g/dL (6.4-8.2)
[2024-09-06] MEDS: PIPERACILLIN /TAZOBACTAM 3.375 G in IV D5W 50 ML IV ONE (11:12)
[2024-09-06] MEDS ORDERED: DIATR MEGLU/DIATRIZOATE SODIUM 30 ML BOTTLE (GASTROGRAPHIN) ONE (11:16)
[2024-09-06 12:00] VITALS: BP 118/83; TEMP 98.4; O2SAT 98
[2024-09-06 13:24] LABS: HEMOGLOBIN 9.8 g/dL (11.5-14.8)
[2024-09-06] MEDS: SOD FERRIC GLUC 125 MG in IV NS 0.9% 100 ML IV SCH (14:21)
[2024-09-06] MEDS ORDERED: CT SWABBABLE VALVE TRANS SET 1 EA INFUS.SET MC ONE (15:22)
[2024-09-06] MEDS ORDERED: IV NS 0.9% 250 ML IV ONE (15:23)
[2024-09-06] MEDS ORDERED: IOHEXOL-300 100 ML VIAL IV ONE (15:24)
[2024-09-06 16:00] VITALS: BP 108/80; TEMP 98.6; O2SAT 96
[2024-09-06] MEDS: PIPERACILLIN /TAZOBACTAM 3.375 G in IV D5W 100 ML IV SCH (18:04)
[2024-09-06 19:51] LABS: HEMOGLOBIN 10.4 g/dL (11.5-14.8)
[2024-09-06 20:00] VITALS: BP 134/97; TEMP 98.6; O2SAT 97
[2024-09-06] MEDS: diphenhydrAMINE HCL 50 MG/ML VIAL IV PRN (21:30)
[2024-09-07] VITALS (7 sets, daily range): BP systolic 98–129; BP diastolic 58–93; TEMP 98.1–98.6; O2SAT 95–99
[2024-09-07 01:18] LABS: HEMOGLOBIN 9.5 g/dL (11.5-14.8)
[2024-09-07 07:03] LABS: BASOPHILS # (AUTO) 0.1 K/uL (0.0-0.2); BASOPHILS % (AUTO) 1.7 % (0.0-2.0); EOSINOPHILS # (AUTO) 0.4 K/uL (0.0-0.7); EOSINOPHILS % (AUTO) 9.9 % (0.0-6.0); HEMATOCRIT 28 % (33-45); HEMOGLOBIN 9.4 g/dL (11.5-14.8); LYMPHOCYTES # (AUTO) 1.2 K/uL (0.8-4.8); LYMPHOCYTES % (AUTO) 34.1 % (20.0-44.0); MEAN CORPUSCULAR HEMOGLOBIN 28 PG (26.0-33.0); MEAN CORPUSCULAR HGB CONC 34 g/dl (31.0-36.0); MEAN CORPUSCULAR VOLUME 85 fL (82-100); MONOCYTES # (AUTO) 0.3 K/uL (0.1-1.30); NEUTROPHILS # (AUTO) 1.6 K/uL (1.8-8.9); NEUTROPHILS % (AUTO) 45.3 % (43.0-81.0); PLATELET COUNT (AUTO) 298 K/uL (150-450); RED CELL DISTRIBUTION WIDTH 13.1 % (11.5-15.0); WHITE BLOOD COUNT (AUTO) 3.6 K/uL (4.3-11.0)
[2024-09-07 07:24] LABS: ALBUMIN 1.9 g/dL (3.4-5.0); BILIRUBIN,DIRECT 0.1 mg/dL (0.0-0.2); BILIRUBIN,TOTAL 0.3 mg/dL (0.2-1.0); CALCIUM, SERUM 8.4 mg/dL (8.5-10.1); CREATININE 0.4 mg/dL (0.6-1.3); MAGNESIUM 1.8 mg/dL (1.8-2.4); PHOSPHORUS 3.8 mg/dL (2.5-4.9); POTASSIUM 2.9 mmol/L (3.5-5.1); TOTAL PROTEIN, SERUM 5.9 g/dL (6.4-8.2)
[2024-09-07] MEDS: POTASSIUM CL. PREMIX PERIPHER. 50 ML IV SCH (11:00)
[2024-09-08] VITALS: BP 109/88; TEMP 97.9; O2SAT 98
[2024-09-08 04:00] VITALS: BP 138/81; TEMP 98.4; O2SAT 99
[2024-09-08 04:35] VITALS: BP 138/81; TEMP 98.4; O2SAT 99
[2024-09-08 06:30] LABS: EOSINOPHILS # (AUTO) 0.2 K/uL (0.0-0.7); EOSINOPHILS % (AUTO) 5.8 % (0.0-6.0); HEMATOCRIT 29 % (33-45); HEMOGLOBIN 9.8 g/dL (11.5-14.8); LYMPHOCYTES # (AUTO) 1.3 K/uL (0.8-4.8); LYMPHOCYTES % (AUTO) 32.7 % (20.0-44.0); MEAN CORPUSCULAR HEMOGLOBIN 29 PG (26.0-33.0); MEAN CORPUSCULAR HGB CONC 34 g/dl (31.0-36.0); MEAN CORPUSCULAR VOLUME 84 fL (82-100); MONOCYTES # (AUTO) 0.4 K/uL (0.1-1.30); MONOCYTES % (AUTO) 9.4 % (2.0-12.0); NEUTROPHILS # (AUTO) 2.1 K/uL (1.8-8.9); NEUTROPHILS % (AUTO) 51.1 % (43.0-81.0); PLATELET COUNT (AUTO) 297 K/uL (150-450); RED BLOOD CELL COUNT(AUTO) 3.45 MIL/uL (4.0-5.2); RED CELL DISTRIBUTION WIDTH 12.8 % (11.5-15.0); WHITE BLOOD COUNT (AUTO) 4.1 K/uL (4.3-11.0)
[2024-09-08 08:00] VITALS: BP 119/85; TEMP 98.1; O2SAT 98
[2024-09-08 08:15] LABS: BILIRUBIN,DIRECT 0.1 mg/dL (0.0-0.2); BILIRUBIN,TOTAL 0.4 mg/dL (0.2-1.0); CALCIUM, SERUM 8.7 mg/dL (8.5-10.1); CREATININE 0.3 mg/dL (0.6-1.3); MAGNESIUM 1.7 mg/dL (1.8-2.4); PHOSPHORUS 3.1 mg/dL (2.5-4.9); POTASSIUM 3.6 mmol/L (3.5-5.1); TOTAL PROTEIN, SERUM 6.3 g/dL (6.4-8.2)
[2024-09-08] MEDS: DEXTROSE 50%-WATER 50 ML DISP.SYRIN IVP ONE (08:31)
[2024-09-08] MEDS: IV D5/ 0.9% NACL 1,000 ML IV PRN (08:37)
[2024-09-08] MEDS: Magnesium 1GM/D5W 100ML PREMIX 100 ML IV SCH (11:05)
[2024-09-08] MEDS ORDERED: METOCLOPRAMIDE HCL 10 MG TABLET JT PRN (12:00)
[2024-09-08] MEDS: SUCRALFATE 1 G/10 ML UDC GT SCH (12:07)
[2024-09-08] MEDS: GABAPENTIN 100 MG CAPSULE GT SCH (12:36)
[2024-09-08] MEDS ORDERED: oxyCODONE IR immediate release 5 MG TABLET JT PRN (13:30)
[2024-09-08] MEDS: PANTOPRAZOLE 40 MG/PACK PACK JT SCH (17:02)
[2024-09-08] MEDS: METOPROLOL TARTRATE 25 MG TABLET JT SCH (17:02)
[2024-09-08] MEDS: DILTIAZEM HCL 30 MG TABLET JT SCH (17:04)
[2024-09-08 20:28] VITALS: BP 130/85; TEMP 98.4; O2SAT 95
[2024-09-09 07:13] LABS: BASOPHILS # (AUTO) 0.1 K/uL (0.0-0.2); BASOPHILS % (AUTO) 0.9 % (0.0-2.0); EOSINOPHILS # (AUTO) 0.4 K/uL (0.0-0.7); EOSINOPHILS % (AUTO) 6.2 % (0.0-6.0); HEMATOCRIT 29 % (33-45); HEMOGLOBIN 10.2 g/dL (11.5-14.8); LYMPHOCYTES # (AUTO) 1.4 K/uL (0.8-4.8); MEAN CORPUSCULAR HEMOGLOBIN 29 PG (26.0-33.0); MEAN CORPUSCULAR HGB CONC 35 g/dl (31.0-36.0); MEAN CORPUSCULAR VOLUME 83 fL (82-100); MONOCYTES # (AUTO) 0.5 K/uL (0.1-1.30); MONOCYTES % (AUTO) 8.4 % (2.0-12.0); NEUTROPHILS # (AUTO) 3.6 K/uL (1.8-8.9); NEUTROPHILS % (AUTO) 60.5 % (43.0-81.0); PLATELET COUNT (AUTO) 346 K/uL (150-450); RED BLOOD CELL COUNT(AUTO) 3.54 MIL/uL (4.0-5.2); RED CELL DISTRIBUTION WIDTH 12.9 % (11.5-15.0)
[2024-09-09 07:30] VITALS: BP 118/93; TEMP 98.6; O2SAT 97
[2024-09-09 07:41] LABS: ALBUMIN 1.9 g/dL (3.4-5.0); BILIRUBIN,DIRECT 0.1 mg/dL (0.0-0.2); BILIRUBIN,TOTAL 0.2 mg/dL (0.2-1.0); CALCIUM, SERUM 8.2 mg/dL (8.5-10.1); CREATININE 0.3 mg/dL (0.6-1.3); MAGNESIUM 1.9 mg/dL (1.8-2.4); PHOSPHORUS 2.5 mg/dL (2.5-4.9)
[2024-09-09 08:05] LABS: POTASSIUM 2.6 mmol/L (3.5-5.1)
[2024-09-09] MEDS: ESCITALOPRAM OXALATE (10 MG) 10 MG TABLET GT SCH (09:39)
[2024-09-09] MEDS: POTASSIUM CHLORIDE 20 MEQ TAB.PRT.SR PO ONE (10:03)
[2024-09-09 16:00] VITALS: BP 142/105; TEMP 98.8; O2SAT 95
[2024-09-09 20:01] VITALS: BP 120/86; TEMP 97.9; O2SAT 95
[2024-09-09] MEDS: SUCRALFATE 1 G/10 ML UDC PO SCH (22:26)
[2024-09-10] MEDS: ACETAMINOPHEN 325 MG TABLET PO PRN (02:29)
[2024-09-10 07:00] VITALS: BP 127/80; TEMP 98.1; O2SAT 98
[2024-09-10] MEDS: PANTOPRAZOLE 40 MG/PACK PACK PO SCH (08:08)
[2024-09-10] MEDS: GABAPENTIN 100 MG CAPSULE PO SCH (08:09)
[2024-09-10 16:00] VITALS: BP 114/85; TEMP 98.6; O2SAT 98
[2024-09-10 20:00] VITALS: BP 118/82; TEMP 98.4; O2SAT 99
[2024-09-11 11:00] LABS: CALCIUM, SERUM 8.6 mg/dL (8.5-10.1); CREATININE 0.4 mg/dL (0.6-1.3)
[2024-09-11 11:02] LABS: POTASSIUM 2.6 mmol/L (3.5-5.1)
[2024-09-11] MEDS ORDERED: POTASSIUM CHLORIDE 10 MEQ/50 ML PREMIXED IVPB FOR PERIPHERAL LINE IV SCH (18:30)
[2024-09-11] MEDS: POTASSIUM CL. PREMIX PERIPHER. 50 ML IV SCH (19:16)
[2024-09-11 20:28] VITALS: BP 100/73; TEMP 98.2; O2SAT 97
[2024-09-11] MEDS: ZOLPIDEM TARTRATE 5 MG TABLET PO PRN (23:19)
[2024-09-12 08:00] VITALS: BP 126/89; TEMP 98.4; O2SAT 92
[2024-09-12] MEDS: METOCLOPRAMIDE HCL 10 MG/2 ML VIAL IV SCH (08:13)
[2024-09-12 08:41] VITALS: BP 129/89
[2024-09-12 09:09] LABS: CREATININE 0.5 mg/dL (0.6-1.3); POTASSIUM 3.8 mmol/L (3.5-5.1)
[2024-09-12 11:49] LABS: PREGNANCY TEST URINE QUAL NEGATIVE (NEGATIVE)
== END 2024-09-12 15:59 | DRG 241 ==
LOC: ER 15:18 → MED 17:48 → TELE 09-06 07:41 → MED 09-08 12:38
PROVIDERS: ADMIT Nurse Practitioner Family; ATTEND Internal Medicine
DX: K29.71 Gastritis, unspecified, with bleeding (principal); E44.0 Moderate protein-calorie malnutrition; K81.0 Acute cholecystitis; K22.2 Esophageal obstruction; E88.09 Other disorders of plasma-protein metabolism, not elsewhere classified; K83.8 Other specified diseases of biliary tract; E87.1 Hypo-osmolality and hyponatremia; K22.10 Ulcer of esophagus without bleeding; E87.6 Hypokalemia; Z87.19 Personal history of other diseases of the digestive system; I10 Essential (primary) hypertension; E78.5 Hyperlipidemia, unspecified; R13.10 Dysphagia, unspecified; K21.9 Gastro-esophageal reflux disease without esophagitis; K52.9 Noninfective gastroenteritis and colitis, unspecified; I25.10 Atherosclerotic heart disease of native coronary artery without angina pectoris; K31.84 Gastroparesis; K82.8 Other specified diseases of gallbladder; Z79.01 Long term (current) use of anticoagulants; Z79.899 Other long term (current) drug therapy; Z93.4 Other artificial openings of gastrointestinal tract status; Z87.59 Personal history of other complications of pregnancy, childbirth and the puerperium; F32.A Depression, unspecified; L98.9 Disorder of the skin and subcutaneous tissue, unspecified; Z87.11 Personal history of peptic ulcer disease
CPT/HCPCS: 36415; 76705-TC; 78226; 80048-TC; 80076-TC; 82962-TC; 83605-TC; 83735-TC; 84100-TC; 84702-TC; 84703-TC; 85025-TC; 85027-TC; 85730-TC; 86850-TC; A4223; A9537; G0378; J1200; J2270; J2405; J2470; J2543; J2765; J2916; J3475; J3480; J3490; J7030; J7040; J7042; J7050; J7060; Q9963; Q9967

== ENCOUNTER 2024-09-21 07:07 | Inpatient (IN) | payer OTHER ==
[~2024-09-21] VITALS: Ht 144.8 cm; Wt 39.0 kg
[~2024-09-21 07:07] MED LIST changes: -ESCI10TA JT; +ESCI5TAB JT; -MUPI22OI7 TP; -ONDA4TAB11 PO; -PANT40TA2 PO; -SUCR1ORA15 JT
[2024-09-21] MEDS ORDERED: ONDANSETRON HCL/PF 4 MG/2 ML VIAL ONE (07:36)
[2024-09-21] MEDS ORDERED: PANTOPRAZOLE 40 MG VIAL ONE (07:36)
[2024-09-21 07:50] LABS: BASOPHILS % (AUTO) 0.5 % (0.0-2.0); EOSINOPHILS # (AUTO) 0.2 K/uL (0.0-0.7); EOSINOPHILS % (AUTO) 2.8 % (0.0-6.0); HEMATOCRIT 31 % (33-45); HEMOGLOBIN 10.4 g/dL (11.5-14.8); LYMPHOCYTES # (AUTO) 1.3 K/uL (0.8-4.8); LYMPHOCYTES % (AUTO) 19.7 % (20.0-44.0); MEAN CORPUSCULAR HEMOGLOBIN 29 PG (26.0-33.0); MEAN CORPUSCULAR HGB CONC 33 g/dl (31.0-36.0); MEAN CORPUSCULAR VOLUME 86 fL (82-100); MONOCYTES # (AUTO) 0.6 K/uL (0.1-1.30); MONOCYTES % (AUTO) 8.7 % (2.0-12.0); NEUTROPHILS # (AUTO) 4.6 K/uL (1.8-8.9); NEUTROPHILS % (AUTO) 68.3 % (43.0-81.0); PLATELET COUNT (AUTO) 437 K/uL (150-450); RED BLOOD CELL COUNT(AUTO) 3.62 MIL/uL (4.0-5.2); RED CELL DISTRIBUTION WIDTH 14.3 % (11.5-15.0); WHITE BLOOD COUNT (AUTO) 6.8 K/uL (4.3-11.0)
[2024-09-21] MEDS: IV NS 0.9% 1,000 ML BAG IV ONE (07:55)
[2024-09-21] MEDS: PANTOPRAZOLE 40 MG VIAL IV ONE (07:57)
[2024-09-21] MEDS: ONDANSETRON HCL/PF 4 MG/2 ML VIAL IVP ONE (07:57)
[2024-09-21 08:07] LABS: BILIRUBIN,DIRECT 0.1 mg/dL (0.0-0.2); BILIRUBIN,TOTAL 0.2 mg/dL (0.2-1.0); CALCIUM, SERUM 8.5 mg/dL (8.5-10.1); CREATININE 0.5 mg/dL (0.6-1.3); POTASSIUM 3.5 mmol/L (3.5-5.1); TOTAL PROTEIN, SERUM 7.1 g/dL (6.4-8.2)
[2024-09-21 08:12] LABS: INR 1.05 (0.91-1.10); PARTIAL THROMBOPLASTIN TIME 31.8 SEC (24.3-34.3); PROTHROMBIN TIME 11.1 SECS (9.2-11.1)
[2024-09-21] MEDS ORDERED: DIATR MEGLU/DIATRIZOATE SODIUM 120 ML BOTTLE (GASTROGRAPHIN) ONE (09:00)
[2024-09-21] MEDS ORDERED: DIATR MEGLU/DIATRIZOATE SODIUM 30 ML BOTTLE (GASTROGRAPHIN) ONE (09:15)
[2024-09-21] MEDS ORDERED: PSYL1PAC8 JT (10:34)
[2024-09-21] MEDS ORDERED: SUCR1ORA15 PO (10:34)
[2024-09-21] MEDS ORDERED: DIVA125C2 JT (10:34)
[2024-09-21] MEDS ORDERED: LACT-96 JT (10:34)
[2024-09-21 12:02] LABS: APPEARANCE,URINE SLIGHTLY CLOUDY (CLEAR); BILIRUBIN,URINE NEGATIVE (NEGATIVE); BLOOD, URINE TRACE-INTA Ery/uL (NEGATIVE); KETONES,URINE 1+ mg/dL (NEGATIVE); LEUKOCYTE ESTERASE ,URINE NEGATIVE (NEGATIVE); NITRITE, URINE NEGATIVE (NEGATIVE); PROTEIN,URINE TRACE mg/dl (NEGATIVE); UGLUCOSE NEGATIVE (NEGATIVE)
[2024-09-21 12:04] LABS: COLOR,URINE DARK YELLOW (YELLOW)
[2024-09-21 12:09] LABS: ADD URINE CULTURE YES; BACTERIA,URINE 1+ /HPF (None Seen); CALCIUM PHOSPHATE CRYSTALS,UR Rare /HPF (None Seen)
[2024-09-21 12:10] LABS: MUCUS,URINE Few /LPF (None Seen); URINE AMORPHOUS PHOSPHATES Few /HPF (None Seen)
[2024-09-21] MEDS ORDERED: MORPHINE SULFATE INJ 4 MG/ML DISP.SYRIN ONE (13:18)
[2024-09-21] MEDS: MORPHINE SULFATE INJ 2 MG/ML DISP.SYRIN IV ONE (13:26)
[2024-09-21] MEDS ORDERED: Z GUARD REMEDY 4 OZ OINT TP PRN (14:00)
[2024-09-21 14:35] VITALS: BP 105/74; TEMP 98.1; O2SAT 97
[2024-09-21] MEDS: PANTOPRAZOLE 40 MG VIAL IV SCH (15:11)
[2024-09-21] MEDS: IV D5/ 0.9% NACL 1,000 ML IV PRN (15:12)
[2024-09-21] MEDS: diphenhydrAMINE HCL 50 MG/ML VIAL IV PRN (16:48)
[2024-09-21 20:00] VITALS: BP 95/67; TEMP 97.9; O2SAT 96
[2024-09-21] MEDS: ONDANSETRON HCL/PF 4 MG/2 ML VIAL IVP PRN (20:59)
[2024-09-21] MEDS: MORPHINE SULFATE INJ 2 MG/ML DISP.SYRIN IV PRN (23:52)
[2024-09-22] VITALS (7 sets, daily range): BP systolic 117–154; BP diastolic 82–99; TEMP 98.1–99; O2SAT 97–99
[2024-09-22 08:07] LABS: CALCIUM, SERUM 8.7 mg/dL (8.5-10.1); CREATININE 0.4 mg/dL (0.6-1.3); MAGNESIUM 1.9 mg/dL (1.8-2.4); PHOSPHORUS 3.3 mg/dL (2.5-4.9)
[2024-09-22 08:10] LABS: BASOPHILS % (AUTO) 0.7 % (0.0-2.0); EOSINOPHILS # (AUTO) 0.2 K/uL (0.0-0.7); EOSINOPHILS % (AUTO) 3.3 % (0.0-6.0); HEMATOCRIT 31 % (33-45); HEMOGLOBIN 10.5 g/dL (11.5-14.8); LYMPHOCYTES % (AUTO) 15.6 % (20.0-44.0); MEAN CORPUSCULAR HEMOGLOBIN 29 PG (26.0-33.0); MEAN CORPUSCULAR HGB CONC 34 g/dl (31.0-36.0); MEAN CORPUSCULAR VOLUME 86 fL (82-100); MONOCYTES # (AUTO) 0.5 K/uL (0.1-1.30); MONOCYTES % (AUTO) 7.8 % (2.0-12.0); NEUTROPHILS # (AUTO) 4.7 K/uL (1.8-8.9); NEUTROPHILS % (AUTO) 72.6 % (43.0-81.0); PLATELET COUNT (AUTO) 421 K/uL (150-450); RED BLOOD CELL COUNT(AUTO) 3.64 MIL/uL (4.0-5.2); RED CELL DISTRIBUTION WIDTH 14.4 % (11.5-15.0); WHITE BLOOD COUNT (AUTO) 6.4 K/uL (4.3-11.0)
[2024-09-22 08:22] LABS: THYROID STIMULATING HORMONE 0.47 uIU/mL (0.358-3.74)
[2024-09-22 08:29] LABS: POTASSIUM 2.6 mmol/L (3.5-5.1)
[2024-09-22] MEDS ORDERED: POTASSIUM CL. PREMIX PERIPHER. 50 ML IV SCH (09:00)
[2024-09-22] MEDS: POTASSIUM CL. PREMIX PERIPHER. 50 ML IV SCH (09:06)
[2024-09-22] MEDS ORDERED: IODIXANOL 320MG/ML 50 ML IV ONE (09:14)
[2024-09-22] MEDS ORDERED: LIDOCAINE HCL/MPF 1% 30 ML VIAL IJ ONE (09:14)
[2024-09-22] MEDS ORDERED: IV SET PRIMARY PUMP SET 1 EA INFUS.SET MC ONE (09:30)
[2024-09-22] MEDS ORDERED: IV NS 0.9% 1,000 ML ONE (09:30)
[2024-09-22] MEDS: CEFAZOLIN 1 GM in IV D5W 50 ML IV STA (09:37)
[2024-09-22] MEDS ORDERED: SECONDARY IV SET 1 EA INFUS.SET MC ONE (09:56)
[2024-09-22 16:03] LABS: INR 1.12 (0.91-1.10); PARTIAL THROMBOPLASTIN TIME 27.4 SEC (24.3-34.3); PROTHROMBIN TIME 11.8 SECS (9.2-11.1)
[2024-09-23 04:00] VITALS: BP 119/84; TEMP 98.2; O2SAT 97
[2024-09-23 06:42] LABS: BASOPHILS % (AUTO) 0.4 % (0.0-2.0); EOSINOPHILS # (AUTO) 0.2 K/uL (0.0-0.7); HEMATOCRIT 30 % (33-45); HEMOGLOBIN 10.2 g/dL (11.5-14.8); LYMPHOCYTES # (AUTO) 1.2 K/uL (0.8-4.8); LYMPHOCYTES % (AUTO) 20.6 % (20.0-44.0); MEAN CORPUSCULAR HEMOGLOBIN 29 PG (26.0-33.0); MEAN CORPUSCULAR HGB CONC 33 g/dl (31.0-36.0); MEAN CORPUSCULAR VOLUME 86 fL (82-100); MONOCYTES # (AUTO) 0.6 K/uL (0.1-1.30); MONOCYTES % (AUTO) 10.6 % (2.0-12.0); NEUTROPHILS % (AUTO) 65.4 % (43.0-81.0); PLATELET COUNT (AUTO) 417 K/uL (150-450); RED BLOOD CELL COUNT(AUTO) 3.55 MIL/uL (4.0-5.2); RED CELL DISTRIBUTION WIDTH 14.4 % (11.5-15.0)
[2024-09-23 07:17] LABS: CALCIUM, SERUM 8.4 mg/dL (8.5-10.1); CREATININE 0.4 mg/dL (0.6-1.3); MAGNESIUM 1.4 mg/dL (1.8-2.4); PHOSPHORUS 3.5 mg/dL (2.5-4.9); POTASSIUM 3.3 mmol/L (3.5-5.1)
[2024-09-23 08:00] VITALS: BP 97/57; TEMP 97.7; O2SAT 99
[2024-09-23 08:08] LABS: THYROID STIMULATING HORMONE 1.38 uIU/mL (0.358-3.74); URIC ACID 3.1 mg/dL (2.6-7.2)
[2024-09-23] MEDS: Magnesium 1GM/D5W 100ML PREMIX 100 ML IV SCH (10:16)
[2024-09-23] MEDS: POTASSIUM CL. PREMIX PERIPHER. 50 ML IV SCH (11:01)
[2024-09-23 16:00] VITALS: BP 104/70; TEMP 98.4; O2SAT 99
[2024-09-23 20:00] VITALS: BP 100/68; TEMP 98.1; O2SAT 99
[2024-09-24] VITALS: BP 106/83; TEMP 98.8; O2SAT 97
[2024-09-24 07:31] LABS: BASOPHILS % (AUTO) 0.3 % (0.0-2.0); EOSINOPHILS % (AUTO) 0.4 % (0.0-6.0); HEMATOCRIT 27 % (33-45); HEMOGLOBIN 9.2 g/dL (11.5-14.8); LYMPHOCYTES # (AUTO) 0.8 K/uL (0.8-4.8); MEAN CORPUSCULAR HEMOGLOBIN 29 PG (26.0-33.0); MEAN CORPUSCULAR HGB CONC 34 g/dl (31.0-36.0); MEAN CORPUSCULAR VOLUME 85 fL (82-100); MONOCYTES # (AUTO) 0.6 K/uL (0.1-1.30); MONOCYTES % (AUTO) 9.3 % (2.0-12.0); NEUTROPHILS # (AUTO) 5.1 K/uL (1.8-8.9); PLATELET COUNT (AUTO) 340 K/uL (150-450); RED BLOOD CELL COUNT(AUTO) 3.15 MIL/uL (4.0-5.2); RED CELL DISTRIBUTION WIDTH 14.5 % (11.5-15.0); WHITE BLOOD COUNT (AUTO) 6.6 K/uL (4.3-11.0)
[2024-09-24 07:35] LABS: CALCIUM, SERUM 7.9 mg/dL (8.5-10.1); CREATININE 0.4 mg/dL (0.6-1.3)
[2024-09-24 08:00] VITALS: BP 125/89; TEMP 98.5; O2SAT 97
[2024-09-24 08:12] LABS: POTASSIUM 2.7 mmol/L (3.5-5.1)
[2024-09-24] MEDS: POTASSIUM CL. PREMIX PERIPHER. 50 ML IV SCH (09:42)
[2024-09-24 12:00] VITALS: BP 114/78; TEMP 98; O2SAT 100
[2024-09-24 16:00] VITALS: BP 113/72; TEMP 98.4; O2SAT 99
[2024-09-24 20:00] VITALS: BP 110/86; TEMP 99; O2SAT 98
[2024-09-25] VITALS: BP 129/84; TEMP 97.5; O2SAT 98
[2024-09-25 04:00] VITALS: BP 126/90; TEMP 97.7; O2SAT 98
[2024-09-25 07:27] LABS: BASOPHILS % (AUTO) 0.9 % (0.0-2.0); EOSINOPHILS # (AUTO) 0.2 K/uL (0.0-0.7); HEMATOCRIT 29 % (33-45); HEMOGLOBIN 9.6 g/dL (11.5-14.8); LYMPHOCYTES # (AUTO) 1.4 K/uL (0.8-4.8); LYMPHOCYTES % (AUTO) 33.5 % (20.0-44.0); MEAN CORPUSCULAR HEMOGLOBIN 29 PG (26.0-33.0); MEAN CORPUSCULAR HGB CONC 33 g/dl (31.0-36.0); MEAN CORPUSCULAR VOLUME 87 fL (82-100); MONOCYTES # (AUTO) 0.6 K/uL (0.1-1.30); MONOCYTES % (AUTO) 14.4 % (2.0-12.0); NEUTROPHILS % (AUTO) 47.2 % (43.0-81.0); PLATELET COUNT (AUTO) 310 K/uL (150-450); RED BLOOD CELL COUNT(AUTO) 3.36 MIL/uL (4.0-5.2); RED CELL DISTRIBUTION WIDTH 15.1 % (11.5-15.0); WHITE BLOOD COUNT (AUTO) 4.2 K/uL (4.3-11.0)
[2024-09-25 07:44] LABS: CALCIUM, SERUM 8.2 mg/dL (8.5-10.1); CREATININE 0.4 mg/dL (0.6-1.3)
[2024-09-25 08:00] VITALS: BP 126/86; TEMP 97.9; O2SAT 99
[2024-09-25 08:09] LABS: MAGNESIUM 1.9 mg/dL (1.8-2.4); PHOSPHORUS 3.3 mg/dL (2.5-4.9)
[2024-09-25] MEDS: Potassium Chloride 20 MEQ in IV D5/ 0.9% NACL 1,000 ML IV SCH (08:59)
[2024-09-25] MEDS: POTASSIUM CL. PREMIX PERIPHER. 50 ML IV SCH (09:48)
[2024-09-25 12:00] VITALS: BP 129/88; TEMP 98.1; O2SAT 98
[2024-09-25 16:00] VITALS: BP 104/77; TEMP 98.7; O2SAT 99
[2024-09-25 20:00] VITALS: BP 103/55; TEMP 98.1
[2024-09-26] VITALS (8 sets, daily range): BP systolic 99–143; BP diastolic 55–85; TEMP 97.5–99.3; O2SAT 98–100
[2024-09-26 08:27] LABS: BASOPHILS # (AUTO) 0.1 K/uL (0.0-0.2); BASOPHILS % (AUTO) 1.2 % (0.0-2.0); EOSINOPHILS # (AUTO) 0.2 K/uL (0.0-0.7); EOSINOPHILS % (AUTO) 3.9 % (0.0-6.0); HEMATOCRIT 30 % (33-45); HEMOGLOBIN 10.1 g/dL (11.5-14.8); LYMPHOCYTES # (AUTO) 1.8 K/uL (0.8-4.8); LYMPHOCYTES % (AUTO) 41.9 % (20.0-44.0); MEAN CORPUSCULAR HEMOGLOBIN 29 PG (26.0-33.0); MEAN CORPUSCULAR HGB CONC 34 g/dl (31.0-36.0); MEAN CORPUSCULAR VOLUME 85 fL (82-100); MONOCYTES # (AUTO) 0.4 K/uL (0.1-1.30); MONOCYTES % (AUTO) 9.9 % (2.0-12.0); NEUTROPHILS # (AUTO) 1.9 K/uL (1.8-8.9); NEUTROPHILS % (AUTO) 43.1 % (43.0-81.0); PLATELET COUNT (AUTO) 419 K/uL (150-450); RED BLOOD CELL COUNT(AUTO) 3.52 MIL/uL (4.0-5.2); RED CELL DISTRIBUTION WIDTH 14.9 % (11.5-15.0); WHITE BLOOD COUNT (AUTO) 4.3 K/uL (4.3-11.0)
[2024-09-26 09:17] LABS: CALCIUM, SERUM 8.2 mg/dL (8.5-10.1); CREATININE 0.4 mg/dL (0.6-1.3); POTASSIUM 3.5 mmol/L (3.5-5.1)
[2024-09-26 09:21] LABS: MAGNESIUM 1.8 mg/dL (1.8-2.4); PHOSPHORUS 4.1 mg/dL (2.5-4.9)
[2024-09-26] MEDS: ENSURE CLEAR 237 ML LIQUID (MIX BERRY) PO SCH (18:36)
[2024-09-27] MEDS: IV D5/ 0.9% NACL 1,000 ML IV ONE (00:02)
[2024-09-27 00:28] VITALS: BP 126/94; TEMP 98.1; O2SAT 99
[2024-09-27 04:57] VITALS: BP 119/66; TEMP 97.2; O2SAT 97
[2024-09-27 08:00] VITALS: BP 120/79; TEMP 97.9; O2SAT 96
[2024-09-27] MEDS: PANTOPRAZOLE 40 MG/PACK PACK PO SCH (08:27)
[2024-09-27 12:00] VITALS: BP 106/76; TEMP 97.3; O2SAT 96
[2024-09-27 14:36] LABS: PREGNANCY TEST URINE QUAL NEGATIVE (NEGATIVE)
[2024-09-27 16:00] VITALS: BP 105/74; TEMP 97.6; O2SAT 99
[2024-09-27 20:30] VITALS: BP 130/84; TEMP 98.8; O2SAT 98
[2024-09-28 00:28] VITALS: BP 104/79; TEMP 98.4; O2SAT 96
[2024-09-28 04:00] VITALS: BP 118/88; TEMP 97.7; O2SAT 97
[2024-09-28 08:00] VITALS: BP 114/83; TEMP 98.1; O2SAT 98
[2024-09-28 11:04] LABS: CALCIUM, SERUM 8.3 mg/dL (8.5-10.1); CREATININE 0.5 mg/dL (0.6-1.3); POTASSIUM 3.6 mmol/L (3.5-5.1)
[2024-09-28 12:00] VITALS: BP 107/81; TEMP 97.7; O2SAT 96
[2024-09-28 16:00] VITALS: BP 119/87; TEMP 98.6; O2SAT 96
[2024-09-28 20:00] VITALS: BP 123/95; TEMP 98.8; O2SAT 95
[2024-09-29] VITALS: BP 140/85; TEMP 98.2; O2SAT 98
[2024-09-29] MEDS: MAGNESIUM HYDROXIDE 30 ML UDC PO PRN (00:08)
[2024-09-29 04:00] VITALS: BP 119/79; TEMP 98.4; O2SAT 98
[2024-09-29 08:00] VITALS: BP 112/66; TEMP 97.3; O2SAT 98
[2024-09-29 16:00] VITALS: BP 129/95; TEMP 98.2; O2SAT 100
[2024-09-29 20:00] VITALS: BP 97/77; TEMP 98.4; O2SAT 98
[2024-09-30] VITALS: BP 112/83; TEMP 98.6; O2SAT 98
[2024-09-30 04:00] VITALS: BP 102/69; TEMP 97.5; O2SAT 100
[2024-09-30 07:34] LABS: EOSINOPHILS # (AUTO) 0.3 K/uL (0.0-0.7); EOSINOPHILS % (AUTO) 5.6 % (0.0-6.0); HEMATOCRIT 31 % (33-45); LYMPHOCYTES # (AUTO) 1.6 K/uL (0.8-4.8); LYMPHOCYTES % (AUTO) 32.4 % (20.0-44.0); MEAN CORPUSCULAR HEMOGLOBIN 28 PG (26.0-33.0); MEAN CORPUSCULAR HGB CONC 33 g/dl (31.0-36.0); MEAN CORPUSCULAR VOLUME 87 fL (82-100); MONOCYTES # (AUTO) 0.4 K/uL (0.1-1.30); MONOCYTES % (AUTO) 7.3 % (2.0-12.0); NEUTROPHILS # (AUTO) 2.6 K/uL (1.8-8.9); NEUTROPHILS % (AUTO) 53.7 % (43.0-81.0); PLATELET COUNT (AUTO) 437 K/uL (150-450); RED BLOOD CELL COUNT(AUTO) 3.54 MIL/uL (4.0-5.2); RED CELL DISTRIBUTION WIDTH 15.9 % (11.5-15.0); WHITE BLOOD COUNT (AUTO) 4.8 K/uL (4.3-11.0)
[2024-09-30 07:52] LABS: ALBUMIN 1.9 g/dL (3.4-5.0); BILIRUBIN,TOTAL 0.4 mg/dL (0.2-1.0); CALCIUM, SERUM 8.3 mg/dL (8.5-10.1); CREATININE 0.5 mg/dL (0.6-1.3); MAGNESIUM 2.1 mg/dL (1.8-2.4); PHOSPHORUS 3.9 mg/dL (2.5-4.9); POTASSIUM 3.8 mmol/L (3.5-5.1); TOTAL PROTEIN, SERUM 6.6 g/dL (6.4-8.2)
[2024-09-30 08:00] VITALS: BP 116/82; TEMP 97.1; O2SAT 100
[2024-09-30 12:00] VITALS: BP 120/67; TEMP 97.2; O2SAT 98
[2024-09-30 16:00] VITALS: BP 122/87; TEMP 97.4; O2SAT 99
[2024-09-30 20:00] VITALS: BP 120/88; TEMP 98.5; O2SAT 97
[2024-10-01] VITALS: BP 117/82; TEMP 97.9; O2SAT 97
[2024-10-01 04:00] VITALS: BP 110/83; TEMP 98; O2SAT 99
[2024-10-01 08:00] VITALS: BP 133/95; TEMP 97.5; O2SAT 98
[2024-10-01 08:16] LABS: BASOPHILS # (AUTO) 0.1 K/uL (0.0-0.2); BASOPHILS % (AUTO) 1.1 % (0.0-2.0); EOSINOPHILS # (AUTO) 0.2 K/uL (0.0-0.7); EOSINOPHILS % (AUTO) 4.6 % (0.0-6.0); HEMATOCRIT 31 % (33-45); LYMPHOCYTES # (AUTO) 1.9 K/uL (0.8-4.8); LYMPHOCYTES % (AUTO) 38.5 % (20.0-44.0); MEAN CORPUSCULAR HEMOGLOBIN 29 PG (26.0-33.0); MEAN CORPUSCULAR HGB CONC 33 g/dl (31.0-36.0); MEAN CORPUSCULAR VOLUME 90 fL (82-100); MONOCYTES # (AUTO) 0.4 K/uL (0.1-1.30); MONOCYTES % (AUTO) 8.2 % (2.0-12.0); NEUTROPHILS # (AUTO) 2.3 K/uL (1.8-8.9); NEUTROPHILS % (AUTO) 47.6 % (43.0-81.0); PLATELET COUNT (AUTO) 388 K/uL (150-450); RED BLOOD CELL COUNT(AUTO) 3.42 MIL/uL (4.0-5.2); RED CELL DISTRIBUTION WIDTH 16.6 % (11.5-15.0); WHITE BLOOD COUNT (AUTO) 4.8 K/uL (4.3-11.0)
[2024-10-01 08:29] LABS: CALCIUM, SERUM 7.9 mg/dL (8.5-10.1); CREATININE 0.3 mg/dL (0.6-1.3); MAGNESIUM 2.2 mg/dL (1.8-2.4); PHOSPHORUS 4.1 mg/dL (2.5-4.9); POTASSIUM 4.2 mmol/L (3.5-5.1)
[2024-10-01] MEDS ORDERED: ONDA4TAB5 PO (10:21)
[2024-10-01 12:00] VITALS: BP 114/88; TEMP 98; O2SAT 99
[2024-10-01 16:00] VITALS: BP 106/85; TEMP 97.6; O2SAT 99
== END 2024-10-01 17:00 | DRG 242 ==
LOC: ER 07:14 → MEDSG1 13:54 → TELE1 09-22 08:22
PROVIDERS: ADMIT Nurse Practitioner Acute Care; ATTEND Student in an Organized Health Care Education/Training Program
PROC: 06H03DZ Insertion of Intraluminal Device into Inferior Vena Cava, Percutaneous Approach (ICD-10-PCS; principal; 2024-09-22)
PROC: B549ZZZ Ultrasonography of Inferior Vena Cava (ICD-10-PCS; 2024-09-22)
PROC: B54BZZZ Ultrasonography of Right Lower Extremity Veins (ICD-10-PCS; 2024-09-22)
PROC: 0DJ08ZZ Inspection of Upper Intestinal Tract, Via Natural or Artificial Opening Endoscopic (ICD-10-PCS; 2024-09-23)
DX: K22.11 Ulcer of esophagus with bleeding (principal); I26.99 Other pulmonary embolism without acute cor pulmonale; E43 Unspecified severe protein-calorie malnutrition; R64 Cachexia; K21.01 Gastro-esophageal reflux disease with esophagitis, with bleeding; D68.59 Other primary thrombophilia; I82.411 Acute embolism and thrombosis of right femoral vein; E87.1 Hypo-osmolality and hyponatremia; K22.2 Esophageal obstruction; K31.9 Disease of stomach and duodenum, unspecified; K29.70 Gastritis, unspecified, without bleeding; Z68.1 Body mass index [BMI] 19.9 or less, adult; E86.1 Hypovolemia; F32.A Depression, unspecified; Z87.19 Personal history of other diseases of the digestive system; Z87.59 Personal history of other complications of pregnancy, childbirth and the puerperium; Z79.01 Long term (current) use of anticoagulants; Z79.899 Other long term (current) drug therapy; I10 Essential (primary) hypertension; I82.431 Acute embolism and thrombosis of right popliteal vein; E87.6 Hypokalemia; Z86.718 Personal history of other venous thrombosis and embolism; Z86.711 Personal history of pulmonary embolism; I25.2 Old myocardial infarction; F41.9 Anxiety disorder, unspecified; Z91.51 Personal history of suicidal behavior; Z74.09 Other reduced mobility; F39 Unspecified mood [affective] disorder
CPT/HCPCS: 36415; 37619; 73610-TC; 73630-TC; 74018; 80048-TC; 80053-TC; 80076-TC; 81001; 83690-TC; 83735-TC; 84100-TC; 84443-TC; 84550-TC; 84702-TC; 84703-TC; 85025-TC; 85610-TC; 85730-TC; 93307-TC; 93970-TC; A4223; G0378; J0690; J1200; J1644; J2270; J2405; J2470; J2704; J3475; J3480; J3490; J7030; J7042; J7050; J7060; J7070; Q9963